=== PATIENT | female | born 1975 | race Caucasian/White ===

== ENCOUNTER → 2016-09-18 | Outpatient (REF) | payer OTHER ==
[~2016-09-18] MED LIST: /HCTZ25TA OR; /PANT40TA PO; ADDE20TA PO; ALBU17IN INH; ATEN50TA2 PO; CARA1TAB2 PO; DIPH50CA OR; FERR325T PO; FERR325T3 PO; IBUP600T26 OR; IBUP80TA PO; KETO10TAB PO; LISI2.5T PO; LISI40TAB OR; MULT1TAB18 PO; PERCOCET PO; PROA1AER INH; PROT1TAB2 PO; TEMA30CA PO; TRAZ50TA2 PO; VALI2TAB PO; VICO5TAB16 PO; VITA500047 PO; VITA500C24 PO; WELLTAB38 PO; ZOFR4SOL PO; ZOLO20CO PO; ZOLO50TA PO; tramadol OR; vitamin B12 IM
[2016-09-23 00:06] LABS: BENZODIAZEPINES, URINE SCREEN See Final Results ng/mL (Cutoff=200); METHADONE, URINE SCREEN Negative ng/mL (Cutoff=300); pH, URINE 6.6 (4.5-8.9)
== END ==
LOC: M SFHCPLAZ 13:28
PROVIDERS: ATTEND Nurse Practitioner Adult Health
DX: F90.9 Attention-deficit hyperactivity disorder, unspecified type (principal)

== ENCOUNTER → 2016-11-06 | Outpatient (REF) | payer OTHER | LOC: M SFHCPLAZ 13:38 | PROVIDERS: ATTEND Nurse Practitioner Adult Health | DX: Z98.84 Bariatric surgery status (principal) ==

== ENCOUNTER 2017-01-14 13:48 | Emergency (ER) | payer OTHER ==
[~2017-01-14] VITALS: Ht 162.6 cm; Wt 96.6 kg
[2017-01-14 13:48] VITALS: BP 162/93
[2017-01-14] MEDS ORDERED: BUPR10TASR PO (13:57)
[2017-01-14] MEDS ORDERED: TOPA100T8 PO (13:57)
[2017-01-14] MEDS ORDERED: SUCR1TA PO (13:57)
[2017-01-14] MEDS ORDERED: VYVA70CA3 PO (13:57)
[2017-01-14] MEDS ORDERED: WELLTAB38 PO (13:57)
[2017-01-14] MEDS ORDERED: ADDE30CA PO (13:57)
[2017-01-14] MEDS ORDERED: LISI-538 PO (13:57)
[2017-01-14] MEDS ORDERED: diphenhydrAMINE INJ 50MG/ML VIAL (J1200) IV STA (14:14)
[2017-01-14] MEDS ORDERED: NS 1,000 ML IV ONE (14:15)
[2017-01-14] MEDS ORDERED: methylPREDNISolone INJ 125 MG/2 ML VIAL (J2930) IV ONE (14:15)
[2017-01-14] MEDS ORDERED: METOCLOPRAMIDE INJ 10MG/2ML VIAL (J2765) IV ONE (14:15)
[2017-01-14] MEDS ORDERED: ACETAMINOPHEN 325 MG TAB PO ONE (14:15)
[2017-01-14 14:54] LABS: BASO % 0.2 % (0.0-1.0); EOS # 0.1 K/mm3 (0.0-0.50); EOS % 1.1 % (0.0-3.0); LARGE UNSTAINED CELL # 0.2 K/mm3 (0.0-0.4); LARGE UNSTAINED CELL % 2.3 % (0.0-4.0); LYMPH % 27.7 % (24.0-44.0); MEAN CORPUSCULAR HEMOGLOBIN 25.3 pg (27.0-33.0); MEAN CORPUSCULAR HGB CONC 31.5 g/dl (32.0-36.5); MEAN CORPUSCULAR VOLUME 80.2 fl (80.0-96.0); MONO # 0.5 K/mm3 (0.0-0.8); MONO % 7.1 % (0.0-5.0); NEUTROPHILS % 61.5 % (36.0-66.0); PLATELET COUNT, AUTOMATED 309 k/mm3 (150-450); RED CELL DISTRIBUTION WIDTH 16.8 % (11.5-14.5); WHITE BLOOD COUNT 6.5 K/mm3 (4.0-10.0)
[2017-01-14 15:09] LABS: ANION GAP 6 MEQ/L (8-16); BLOOD UREA NITROGEN 11 MG/DL (7-18); CALCIUM LEVEL 8.1 MG/DL (8.5-10.1); CARBON DIOXIDE LEVEL 25 MEQ/L (21-32); CHLORIDE LEVEL 110 MEQ/L (98-107); CREATININE FOR GFR 0.79 MG/DL (0.55-1.02); GLOMERULAR FILTRATION RATE > 60.0 (>58); GLUCOSE, FASTING 89 MG/DL (70-105); POTASSIUM SERUM 4.3 MEQ/L (3.5-5.1); SODIUM LEVEL 141 MEQ/L (136-145)
--- NOTE | 2017-01-14 15:27 | REP ---
CT STUDY OF THE BRAIN WITHOUT CONTRAST: HISTORY: Headache. FINDINGS: Digital lateral industrial waste treatment technician radiograph is unremarkable. Bone window settings demonstrate an intact bony calvarium. There is minimal mucus in the right side of the sphenoid sinus. The visualized paranasal sinuses are otherwise clear. No intraorbital abnormality is seen. On soft tissue window settings, the lateral, third, fourth ventricles are normal in size and position. Echavarria-white differentiation pattern is normal above and below the tentorium. There is no evidence of intracranial hemorrhage. No extra-axial fluid collection is seen. No mass, infarct or midline shift is seen. IMPRESSION: Negative noncontrast head CT. Signed by Tom Espitia MD 01/14/2017 03:44 P
[2017-01-14 15:28] LABS: ERYTHROCYTE SEDIMENTATION RATE 17 mm/hr (0-20)
[2017-01-14] MEDS ORDERED: KETOROLAC 30 MG/ML VIAL (J1885) IV ONE (15:45)
[2017-01-14] MEDS ORDERED: ROBA500T PO (16:13)
[2017-01-16 00:12] LABS: Lyme Disease IgG/IgM Antibodie <0.91 ISR (0.00-0.90); Lyme Disease IgM Ab Quantitati <0.80 index (0.00-0.79)
== END 2017-01-14 16:25 | disposition home or self-care (01) ==
LOC: M ED 14:57
DX: G43.909 Migraine, unspecified, not intractable, without status migrainosus (principal); I10 Essential (primary) hypertension; K21.9 Gastro-esophageal reflux disease without esophagitis; D68.59 Other primary thrombophilia; A69.20 Lyme disease, unspecified; F31.9 Bipolar disorder, unspecified; R42 Dizziness and giddiness; M51.9 Unspecified thoracic, thoracolumbar and lumbosacral intervertebral disc disorder; F90.9 Attention-deficit hyperactivity disorder, unspecified type; Z87.891 Personal history of nicotine dependence
CPT/HCPCS: 70450; 80048; 85025; 85652; 86140; 86617; 96374; 96375; 99282; J1200; J1885; J2765; J2930

== ENCOUNTER → 2017-03-07 | Outpatient (REF) | payer OTHER ==
[~2017-03-07] MED LIST changes: +ADDE30CA3 PO; +BUPR10TASR PO; +FERR1TAB8 PO; -FERR325T PO; +LISI-538 PO; +METF500T13 PO; +PAME10CA PO; +PHEN15CA PO; -PROA1AER INH; +PROAAER10 INH; +ROBA500T PO; +SUCR1TA PO; +TOPA100T12 PO; +VYVA70CA3 PO
== END ==
LOC: M LAB REF 12:49
PROVIDERS: ATTEND Physician Assistant
DX: N39.0 Urinary tract infection, site not specified (principal)

== ENCOUNTER → 2017-03-08 | Outpatient (REF) | payer OTHER | LOC: M SFHCWAGY 15:52 | PROVIDERS: ATTEND Nurse Practitioner Family | DX: N89.8 Other specified noninflammatory disorders of vagina (principal) ==

== ENCOUNTER → 2017-04-30 | Outpatient (CLI) | payer OTHER ==
--- NOTE | 2017-04-30 12:49 | REP ---
Chest x-ray: Two views. History: Shortness of breath. Question pneumonia. . Comparison study: July 12, 2016 . Findings: The lungs are well inflated and free of infiltrate. The pleural angles are sharp. The heart size is normal. Pulmonary vasculature is not increased. No significant bony abnormality is seen. Impression: Negative chest x-ray. Signed by Tom Espitia MD 04/30/2017 12:40 P
== END ==
LOC: M RAD 12:12
PROVIDERS: ATTEND Physician Assistant Medical
DX: R06.02 Shortness of breath (principal)

== ENCOUNTER 2017-06-29 11:42 | Emergency (ER) | payer OTHER ==
[~2017-06-29] VITALS: Ht 162.6 cm; Wt 97.3 kg
[~2017-06-29 11:42] MED LIST changes: -METF500T13 PO; -PAME10CA PO; -PHEN15CA PO
[2017-06-29] MEDS ORDERED: METF500T13 PO (11:56)
[2017-06-29] MEDS ORDERED: PAME10CA PO (11:56)
[2017-06-29] MEDS ORDERED: PHEN15CA PO (11:56)
[2017-06-29] MEDS ORDERED: NS 500 ML IV ONE (12:30)
[2017-06-29 12:42] LABS: BASO % 0.3 % (0.0-1.0); EOS # 0.1 10^3/uL (0.0-0.50); EOS % 1.3 % (0.0-3.0); IMMATURE GRANULOCYTE % 0.2 % (0-0); LYMPH # 1.9 10^3/uL (1.5-4.5); LYMPH % 31.8 % (24.0-44.0); MEAN CORPUSCULAR HEMOGLOBIN 26.3 pg (27.0-33.0); MEAN CORPUSCULAR HGB CONC 32.6 g/dl (32.0-36.5); MEAN CORPUSCULAR VOLUME 80.9 fl (80.0-96.0); MONO # 0.7 10^3/uL (0.0-0.8); MONO % 11.7 % (0.0-5.0); NEUTROPHILS # 3.3 10^3/uL (1.8-7.7); NEUTROPHILS % 54.7 % (36.0-66.0); PLATELET COUNT, AUTOMATED 277 10^3/uL (150-450); RED CELL DISTRIBUTION WIDTH 15.6 % (11.5-14.5)
[2017-06-29 13:06] LABS: ALBUMIN 3.4 GM/DL (3.2-5.2); ALKALINE PHOSPHATASE 100 U/L (45-117); ALT/SGPT 18 U/L (12-78); ANION GAP 6 MEQ/L (8-16); AST/SGOT 10 U/L (15-37); BILIRUBIN,DIRECT 0.1 MG/DL (0.0-0.2); BILIRUBIN,TOTAL 0.3 MG/DL (0.2-1.0); BLOOD UREA NITROGEN 12 MG/DL (7-18); CALCIUM LEVEL 8.3 MG/DL (8.5-10.1); CARBON DIOXIDE LEVEL 22 MEQ/L (21-32); CHLORIDE LEVEL 110 MEQ/L (98-107); CREATININE FOR GFR 0.88 MG/DL (0.55-1.02); GLOMERULAR FILTRATION RATE > 60.0 (>58); GLUCOSE, FASTING 79 MG/DL (70-105); POTASSIUM SERUM 4.4 MEQ/L (3.5-5.1); SODIUM LEVEL 138 MEQ/L (136-145); TOTAL PROTEIN 6.8 GM/DL (6.4-8.2)
[2017-06-29] MEDS ORDERED: ISOVUE-370 76% 100ML VIAL (Q9967) As Ordered ONE (13:26)
--- NOTE | 2017-06-29 13:38 | REP ---
PA and lateral chest: Comparison is 2016. The lung escalera are clear. The cardiac size is normal The jose, mediastinum, and bony thorax are unremarkable. Impression: Negative PA and lateral chest. There is no interval change. Signed by Freddy Traore MD 06/29/2017 01:29 P
--- NOTE | 2017-06-29 14:32 | REP ---
CT of the chest with IV contrast, CT pulmonary angiography: There are no emboli in the pulmonary trunk or central pulmonary arteries. There are no emboli in the pulmonary lobe or segment branches. There are no infiltrates or effusions. There are no masses or nodules. There is no mediastinal or hilar adenopathy. No axillary adenopathy. The thoracic aorta is unremarkable. Cardiac size is normal. The visualized upper abdominal contents are unremarkable. There are surgical clips suggestive of bariatric surgery. Impression: There are no pulmonary emboli. Otherwise, negative CT study of the chest. There are surgical clips in the upper abdomen suggestive of bariatric surgery. Signed by Freddy Traore MD 06/29/2017 02:24 P
[2017-06-29 14:40] VITALS: BP 129/88
--- NOTE | 2017-06-30 08:02 | ECGEPIP ---
Stationary ECG Study [facility] - ED Test Date: 2017-06-29 Pat Name: DELON CARR Department: Room: - Gender: F Medical Office Rep: PB : 1975 Requested By: Jesus Kirkpatrick Order Number: [id number] Reading MD: Kathy Dubois Measurements Intervals [place] Rate: 87 P: 68 CT: 164 QRS: 0 QRSD: 93 T: 34 QT: 362 QTc: 436 Interpretive Statements SINUS RHYTHM NSTTW ABNORMALITY DECREASED RATE 07/06/16 Electronically Signed On 06-30-2017 8:02:07 EDT by Kathy Dubois
== END 2017-06-29 14:55 | disposition home or self-care (01) ==
LOC: M ED 11:42
DX: R07.9 Chest pain, unspecified (principal); R06.02 Shortness of breath; R94.31 Abnormal electrocardiogram [ECG] [EKG]; F90.9 Attention-deficit hyperactivity disorder, unspecified type; F41.9 Anxiety disorder, unspecified; F32.9 Major depressive disorder, single episode, unspecified; D68.59 Other primary thrombophilia; K85.90 Acute pancreatitis without necrosis or infection, unspecified; M51.86 Other intervertebral disc disorders, lumbar region; R42 Dizziness and giddiness; M25.50 Pain in unspecified joint; R53.83 Other fatigue; E06.9 Thyroiditis, unspecified; A69.20 Lyme disease, unspecified; Z87.01 Personal history of pneumonia (recurrent); Z95.5 Presence of coronary angioplasty implant and graft; Z98.84 Bariatric surgery status; Z82.49 Family history of ischemic heart disease and other diseases of the circulatory system; Z79.899 Other long term (current) drug therapy; Z88.6 Allergy status to analgesic agent; Z88.5 Allergy status to narcotic agent; Z88.8 Allergy status to other drugs, medicaments and biological substances; Z88.1 Allergy status to other antibiotic agents
CPT/HCPCS: 71020; 71275; 80048; 80076; 82550; 82553; 83605; 85025; 93000; 93041; 94760; 96360; 99285; Q9967

== ENCOUNTER 2018-03-01 11:59 | Emergency (ER) | payer OTHER ==
[2018-03-01 13:20] LABS: CK-MB VALUE MASS < 1.0 NG/ML (<3.6); CPK CREATINE PHOSPHOKINASE 78 U/L (26-192); MB/CK RELATIVE INDEX 1.28 (< OR =4); TROPONIN I < 0.02 NG/ML (< 0.10)
== END 2018-03-01 14:11 | disposition home or self-care (01) ==
LOC: M ED 11:59
DX: R07.9 Chest pain, unspecified (principal); F41.1 Generalized anxiety disorder; K04.7 Periapical abscess without sinus; I10 Essential (primary) hypertension; Z98.84 Bariatric surgery status; D68.59 Other primary thrombophilia; F90.9 Attention-deficit hyperactivity disorder, unspecified type; Z79.899 Other long term (current) drug therapy; Z88.6 Allergy status to analgesic agent; Z88.5 Allergy status to narcotic agent; Z88.8 Allergy status to other drugs, medicaments and biological substances; Z88.1 Allergy status to other antibiotic agents
CPT/HCPCS: 93005

== ENCOUNTER 2018-06-30 15:32 | Emergency (ER) | payer OTHER ==
[2018-06-30] MEDS: PERCOCET 5MG/325MG TAB PO (16:27)
[2018-06-30] MEDS: CYCLOBENZAPRINE 10 MG TAB PO (16:27)
== END 2018-06-30 17:12 | disposition home or self-care (01) ==
LOC: M ED 15:32
DX: S86.112A Strain of other muscle(s) and tendon(s) of posterior muscle group at lower leg level, left leg, initial encounter (principal); X50.9XXA Other and unspecified overexertion or strenuous movements or postures, initial encounter; Y92.098 Other place in other non-institutional residence as the place of occurrence of the external cause; I11.0 Hypertensive heart disease with heart failure; I50.9 Heart failure, unspecified; J45.909 Unspecified asthma, uncomplicated; Z88.1 Allergy status to other antibiotic agents; Z88.5 Allergy status to narcotic agent; Z88.8 Allergy status to other drugs, medicaments and biological substances; Z79.899 Other long term (current) drug therapy
CPT/HCPCS: 99284

== ENCOUNTER 2018-12-12 15:04 | Emergency (ER) | payer OTHER ==
[~2018-12-12] VITALS: Ht 162.6 cm; Wt 100.0 kg
[2018-12-12 15:04] VITALS: BP 136/87
[~2018-12-12 15:04] MED LIST changes: -/HCTZ25TA OR; -/PANT40TA PO; +CLIN150C14 PO; +CYCL10TA PO; +HYDR-3644 OR; +LISI40TA52 OR; -LISI40TAB OR; +METF500T13 PO; +PAME10CA PO; +PERC5TAB12 PO; +PHEN15CA PO
[2018-12-12] MEDS ORDERED: PENI500T PO (15:46)
[2018-12-12] MEDS ORDERED: HYDR-3715 PO (15:46)
== END 2018-12-12 16:06 | disposition home or self-care (01) ==
LOC: M ED 15:04
DX: K04.7 Periapical abscess without sinus (principal); I10 Essential (primary) hypertension; Z88.8 Allergy status to other drugs, medicaments and biological substances; Z88.5 Allergy status to narcotic agent; Z88.1 Allergy status to other antibiotic agents

== ENCOUNTER 2018-12-15 11:52 | Emergency (ER) | payer OTHER ==
[~2018-12-15 11:52] MED LIST changes: +HYDR-3715 PO; +PENI500T PO
[2018-12-15] MEDS ORDERED: ACET1TAB55 PO (11:58)
[2018-12-15 12:46] LABS: INFLUENZA A AMPLIFICATION NEGATIVE (NEGATIVE); INFLUENZA B AMPLIFICATION NEGATIVE (NEGATIVE)
[2018-12-15] MEDS ORDERED: IPRATROPIUM 0.5MG/ALBUTEROL 2.5MG INH SOL UD 3ML (DUONEB)(J7620) NEB PRN (13:15)
--- NOTE | 2018-12-15 14:32 | REP ---
Chest x-ray: Two views. History: Dyspnea and cough . Comparison study: June 29, 2017 . Findings: The lungs are well inflated and free of infiltrate. The pleural angles are sharp. The heart size is normal. Pulmonary vasculature is not increased. No significant bony abnormality is seen. Impression: Negative chest x-ray. Electronically Signed by Tom Espitia MD 12/15/2018 02:23 P
[2018-12-15] MEDS ORDERED: PRED20TA PO (14:48)
[2018-12-15] MEDS ORDERED: MAGICMW SSP (14:49)
[2018-12-15 15:00] VITALS: BP 122/74
== END 2018-12-15 15:04 | disposition home or self-care (01) ==
LOC: M ED 11:52
DX: J06.9 Acute upper respiratory infection, unspecified (principal); I50.9 Heart failure, unspecified; J45.909 Unspecified asthma, uncomplicated; Z98.84 Bariatric surgery status; Z79.2 Long term (current) use of antibiotics; Z79.891 Long term (current) use of opiate analgesic; Z79.51 Long term (current) use of inhaled steroids; Z79.899 Other long term (current) drug therapy; Z88.5 Allergy status to narcotic agent; Z88.6 Allergy status to analgesic agent; Z88.8 Allergy status to other drugs, medicaments and biological substances

== ENCOUNTER 2019-01-14 11:14 | Emergency (ER) | payer OTHER ==
[~2019-01-14] VITALS: Ht 165.1 cm; Wt 101.5 kg
[~2019-01-14 11:14] MED LIST changes: +ACET1TAB55 PO; +MAGICMW SSP; +PRED20TA PO
[2019-01-14] MEDS ORDERED: CLIN150C14 PO (11:22)
[2019-01-14] MEDS ORDERED: UNASYN 3 GM VIAL IM ONE (12:15)
[2019-01-14] MEDS ORDERED: AMPI500C9 PO (12:20)
[2019-01-14] MEDS ORDERED: TRAM50TA2 PO (12:21)
[2019-01-14] MEDS ORDERED: LIDOCAINE 1% MDV 20ML VIAL IM ONE (12:45)
[2019-01-14 13:22] VITALS: BP 123/86
== END 2019-01-14 13:23 | disposition home or self-care (01) ==
LOC: M ED 11:14
DX: K02.9 Dental caries, unspecified (principal); K04.7 Periapical abscess without sinus; I10 Essential (primary) hypertension; A69.20 Lyme disease, unspecified; Z98.84 Bariatric surgery status; Z79.899 Other long term (current) drug therapy; Z88.5 Allergy status to narcotic agent; Z88.8 Allergy status to other drugs, medicaments and biological substances

== ENCOUNTER 2019-01-15 09:14 | Emergency (ER) | payer OTHER ==
[~2019-01-15] VITALS: Ht 165.1 cm; Wt 102.0 kg
[2019-01-15 09:14] VITALS: BP 125/78
[~2019-01-15 09:14] MED LIST changes: +AMPI500C9 PO; +TRAM50TA2 PO
== END 2019-01-15 09:54 | disposition home or self-care (01) ==
LOC: M ED 09:14
DX: K04.7 Periapical abscess without sinus (principal); I11.0 Hypertensive heart disease with heart failure; I50.9 Heart failure, unspecified; J45.909 Unspecified asthma, uncomplicated; K21.9 Gastro-esophageal reflux disease without esophagitis; D68.2 Hereditary deficiency of other clotting factors; A69.20 Lyme disease, unspecified; F90.9 Attention-deficit hyperactivity disorder, unspecified type; F31.9 Bipolar disorder, unspecified; F33.9 Major depressive disorder, recurrent, unspecified; F41.9 Anxiety disorder, unspecified; Z79.899 Other long term (current) drug therapy; Z88.1 Allergy status to other antibiotic agents; Z88.5 Allergy status to narcotic agent; Z88.8 Allergy status to other drugs, medicaments and biological substances

== ENCOUNTER 2019-01-27 09:17 | Emergency (ER) | payer OTHER ==
[~2019-01-27] VITALS: Ht 162.6 cm; Wt 100.8 kg
[2019-01-27] MEDS ORDERED: AMPHET/DEXTR (09:39)
[2019-01-27] MEDS: NITROGLYCERIN 0.4 MG SUBL TABLET SL PRN ×2 (09:45→10:18)
[2019-01-27 09:53] LABS: BASO % 0.4 % (0.0-1.0); EOS # 0.1 10^3/uL (0.0-0.50); EOS % 1.6 % (0.0-3.0); HEMATOCRIT 36.9 % (36.0-47.0); HEMOGLOBIN 11.9 g/dl (12.0-15.5); LYMPH # 1.5 10^3/uL (1.5-4.5); LYMPH % 27.3 % (24.0-44.0); MEAN CORPUSCULAR HEMOGLOBIN 27.4 pg (27.0-33.0); MEAN CORPUSCULAR HGB CONC 32.2 g/dl (32.0-36.5); MEAN CORPUSCULAR VOLUME 84.8 fl (80.0-96.0); MONO # 0.5 10^3/uL (0.0-0.8); MONO % 9.4 % (0.0-5.0); NEUTROPHILS # 3.4 10^3/uL (1.8-7.7); NEUTROPHILS % 61.1 % (36.0-66.0); PLATELET COUNT, AUTOMATED 309 10^3/uL (150-450); RED BLOOD COUNT 4.35 10^6/uL (4.00-5.40); WHITE BLOOD COUNT 5.5 10^3/uL (4.0-10.0)
[2019-01-27 10:03] LABS: INR 0.94; PROTHROMBIN TIME 12.7 SECONDS (12.1-14.4)
[2019-01-27 10:04] LABS: PARTIAL THROMBOPLASTIN TIME 29.9 SECONDS (25.4-37.6)
[2019-01-27 10:18] VITALS: BP 145/89
[2019-01-27 10:23] LABS: ALBUMIN 3.3 GM/DL (3.2-5.2); ALT/SGPT 17 U/L (12-78); BILIRUBIN,DIRECT < 0.1 MG/DL (0.0-0.2); BILIRUBIN,TOTAL 0.3 MG/DL (0.2-1.0); BLOOD UREA NITROGEN 10 MG/DL (7-18); CALCIUM LEVEL 8.6 MG/DL (8.5-10.1); CARBON DIOXIDE LEVEL 24 MEQ/L (21-32); CHLORIDE LEVEL 109 MEQ/L (98-107); CPK CREATINE PHOSPHOKINASE 181 U/L (26-192); CREATININE FOR GFR 0.78 MG/DL (0.55-1.30); GLOMERULAR FILTRATION RATE > 60.0 (>58); GLUCOSE, FASTING 74 MG/DL (70-100); LIPASE 194 U/L (73-393); POTASSIUM SERUM 3.6 MEQ/L (3.5-5.1); SODIUM LEVEL 141 MEQ/L (136-145); TROPONIN I < 0.02 NG/ML (< 0.10)
--- NOTE | 2019-01-27 10:32 | REP ---
Bilateral lower extremity Duplex Doppler venous ultrasound: Real time compression and duplex Doppler interrogation of the bilateral lower extremity deep venous system is performed. Bilaterally, the common femoral, superficial femoral and popliteal veins are fully compressible with transducer pressure and demonstrate normal spontaneous and phasic flow, without evidence of deep venous thrombosis. Impression: No evidence of deep venous thrombosis of the bilateral lower extremity femoral popliteal venous system. Electronically Signed by Freddy Echavarria MD 01/27/2019 10:24 A
[2019-01-27] MEDS ORDERED: ISOVUE-370 76% 100ML VIAL (Q9967) As Ordered ONE (10:39)
--- NOTE | 2019-01-27 11:54 | REP ---
CT ANGIOGRAM CHEST: TECHNIQUE: Axial contrast enhanced images from the thoracic inlet to the upper abdomen using 100 mL Isovue 370 intravenous contrast material with multiplanar reformations. There is no CT evidence of pulmonary embolism. There is no thoracic aortic aneurysm or dissection. The heart is normal in size. There is no evidence of mediastinal, hilar, or chest wall lymphadenopathy. There is no pleural or pericardial effusion. Insignificant 3 mm nodular opacity in the right lower lobe is stable since the prior CT of 06/29/2017. No infiltrate is seen in either lung. IMPRESSION: No CT evidence of pulmonary embolism or aortic dissection. No acute pulmonary disease. Electronically Signed by Freddy Echavarria MD 01/28/2019 09:14 A
[2019-01-27 16:10] LABS: CPK CREATINE PHOSPHOKINASE 153 U/L (26-192); MB/CK RELATIVE INDEX 1.83 (< OR =4); TROPONIN I < 0.02 NG/ML (< 0.10)
[2019-01-27 17:14] LABS: NT-PRO BNP 124 PG/ML (<125)
[2019-01-27] MEDS ORDERED: PROT1TAB2 PO (17:20)
[2019-01-27 17:27] VITALS: BP 145/94
--- NOTE | 2019-01-27 21:09 | REP ---
Chest two views HISTORY: Chest pain Comparison: 12/15/2018 The lungs are clear. The heart is normal in size. The pulmonary vasculature is normal in appearance. Degenerative change is present in the thoracic spine. IMPRESSION: No acute disease. Electronically Signed by Teddy Aguillon MD 01/27/2019 10:10 A
--- NOTE | 2019-01-27 21:10 | REP ---
Thoracic spine three views History: Mid-back pain There is no acute fracture or subluxation. There is loss of height of several mid and lower thoracic intervertebral discs. Anterior osteophytes are present in the lower thoracic spine. There is minimal scoliosis convex to the right. Impression: Degenerative change as described above. Electronically Signed by Teddy Aguillon MD 01/27/2019 10:09 A
--- NOTE | 2019-01-28 06:01 | ECGEPIP ---
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 Order Number: [id number] Reading MD: Jesus Torrez Measurements Intervals [place] Rate: 90 P: 70 NE: 157 QRS: -15 QRSD: 89 T: 18 QT: 364 QTc: 447 Interpretive Statements SINUS RHYTHM NSTTW ABNORMALITIES SIMILAR TO 03/01/18 Electronically Signed on 01-28-2019 6:00:24 EDT by Jesus Torrez
--- NOTE | 2019-01-28 06:12 | ECGEPIP ---
[facility] - ED Test Date: 2019-01-27 Pat Name: DELON CARR Department: Room: - Gender: F Wellness Assistant: CT : 1975 Requested By: BRENDAN Palacios Order Number: [id number] Reading MD: Jesus Torrez Measurements Intervals [place] Rate: 95 P: 63 MO: 159 QRS: -16 QRSD: 90 T: 26 QT: 345 QTc: 435 Interpretive Statements SINUS RHYTHM NSTTW ABNORMALITIES SIMILAR TO PRIOR ON SAME DATE Electronically Signed on 01-28-2019 6:12:09 EDT by Jesus Torrez
== END 2019-01-27 17:33 | disposition home or self-care (01) ==
LOC: M ED 09:17
DX: R07.9 Chest pain, unspecified (principal); R94.31 Abnormal electrocardiogram [ECG] [EKG]; M25.78 Osteophyte, vertebrae; M41.9 Scoliosis, unspecified; R06.02 Shortness of breath; R22.43 Localized swelling, mass and lump, lower limb, bilateral; Z98.84 Bariatric surgery status; Z87.891 Personal history of nicotine dependence; Z86.14 Personal history of Methicillin resistant Staphylococcus aureus infection; Z86.19 Personal history of other infectious and parasitic diseases; Z88.5 Allergy status to narcotic agent; Z88.6 Allergy status to analgesic agent; Z88.8 Allergy status to other drugs, medicaments and biological substances; Z79.899 Other long term (current) drug therapy; Z79.51 Long term (current) use of inhaled steroids; Z79.891 Long term (current) use of opiate analgesic
CPT/HCPCS: 71046; 71275; 72072; 80048; 80076; 82550; 82553; 83690; 83880; 84439; 84443; 85025; 85610; 85730; 93005; 93041; 93970; 94760; 99285; Q9967

== ENCOUNTER → 2019-07-08 | Outpatient (CLI) | payer OTHER ==
[~2019-07-08] MED LIST changes: +AMPHET/DEXTR
--- NOTE | 2019-07-08 10:18 | REP ---
Clinical: Abdominal pain and bloating. Technique: Two supine views of the abdomen and pelvis. Findings: Bowel gas pattern is nonspecific. Postsurgical changes are appreciated. No obvious organomegaly. Phleboliths noted in the pelvis. Skeletal structures are intact. Impression: Nonspecific bowel gas pattern. Electronically Signed by Brian Lanier MD 07/08/2019 10:09 A
--- NOTE | 2019-07-08 10:38 | REP ---
Clinical: Abdominal pain and bloating Technique: Real time cornejo scale ultrasound examination using curved array transducer. Findings: Liver is mildly echogenic and coarsened without focal hepatic lesion identified. Pancreas is incompletely evaluated due to interposed bowel gas but visualized portions appear normal. The gallbladder is unremarkable and without gallstones, wall thickening, or pericholecystic fluid. No biliary ductal dilatation is appreciated and the common bile duct measures 3.0 mm diameter. Right kidney is normal in reniform shape without hydronephrosis and measures 10.5 x 5.55 4.6 cm. No ascites in the visualized right upper quadrant. Impression: 1. Mild hepatic steatosis. 2. Otherwise essentially normal right upper quadrant abdominal ultrasound. Electronically Signed by Brian Lanier MD 07/08/2019 10:29 A
== END ==
LOC: M RAD 09:48
PROVIDERS: ATTEND Student in an Organized Health Care Education/Training Program
DX: R14.0 Abdominal distension (gaseous) (principal); R14.3 Flatulence; K76.0 Fatty (change of) liver, not elsewhere classified

== ENCOUNTER → 2019-09-21 | Outpatient (CLI) | payer OTHER ==
[~2019-09-21] MED LIST changes: +E-Z-GAS II EFFERVESCENT PACKET (SODIUM BICARB./CITRIC ACID/SIMETHICONE) As Ordered ONE; +E-Z-HD 98% w/w 340GM SUSP BTL As Ordered ONE; +E-Z-PAQUE 96% w/w SUSP 176GM BTL As Ordered ONE
--- NOTE | 2019-09-21 19:05 | REP ---
UPPER GI SINGLE CONTRAST The procedure was performed under the direct supervision of Dr. Espitia. The images were reviewed with Dr. Espitia. The channeler runner film shows no organomegaly or pathological masses. The intestinal gas pattern is nonspecific. There are surgical clips noted in the right abdomen. Liquid barium was administered in the erect and prone oblique positions. The oral and pharyngeal stages of deglutition are unremarkable. Esophageal transport is prompt and efficient and there is no esophagitis stricture mucosal ring. There is a sliding type hiatal hernia. There is gastroesophageal reflux demonstrated to above the level of the rajni. There are postsurgical changes of the stomach consistent with the patient's history of Fredy-en-Y gastric bypass. There is free flow of contrast to the anastomosis. There is no evidence of gastritis neoplasm or ulcer disease. The visualized portion of the proximal small bowel appears normal in course and caliber. Impression: 1. There is a sliding type hiatal hernia with gastroesophageal reflux demonstrated to above the level of the rajni. 2. Postsurgical changes of the stomach consistent with the patient's history of Fredy-en-Y gastric bypass. 1 minute of fluoroscopy time was utilized for this procedure. Electronically Signed by SUAD Ny 09/21/2019 04:10 P Electronically Signed by oTm Espitia MD 09/21/2019 06:55 P
== END ==
LOC: M RAD 09:32
PROVIDERS: ATTEND Student in an Organized Health Care Education/Training Program
DX: R13.10 Dysphagia, unspecified (principal)

== ENCOUNTER → 2019-09-21 | Outpatient (CLI) | payer OTHER ==
[~2019-09-21] MED LIST changes: -E-Z-GAS II EFFERVESCENT PACKET (SODIUM BICARB./CITRIC ACID/SIMETHICONE) As Ordered ONE; -E-Z-HD 98% w/w 340GM SUSP BTL As Ordered ONE; -E-Z-PAQUE 96% w/w SUSP 176GM BTL As Ordered ONE
[2019-09-21 11:04] LABS: ALBUMIN 3.2 GM/DL (3.2-5.2); ALT/SGPT 17 U/L (12-78); BILIRUBIN,TOTAL 0.3 MG/DL (0.2-1.0); BLOOD UREA NITROGEN 16 MG/DL (7-18); CALCIUM LEVEL 8.6 MG/DL (8.5-10.1); CARBON DIOXIDE LEVEL 23 MEQ/L (21-32); CHLORIDE LEVEL 112 MEQ/L (98-107); CHOLESTEROL LEVEL 164 MG/DL (<200); CHOLESTEROL RISK RATIO 2.645 (<5); CREATININE FOR GFR 0.86 MG/DL (0.55-1.30); FREE T4 0.81 NG/DL (0.76-1.46); GLOMERULAR FILTRATION RATE > 60.0 (>58); GLUCOSE, FASTING 73 MG/DL (70-100); HDL CHOLESTEROL 62 MG/DL (>40); LDL CHOLESTEROL 88 MG/DL (<100); NON-HDL-C 102 MG/DL; POTASSIUM SERUM 4.4 MEQ/L (3.5-5.1); SODIUM LEVEL 141 MEQ/L (136-145); TOTAL PROTEIN 6.7 GM/DL (6.4-8.2); TRIGLYCERIDES LEVEL 71 MG/DL (<150)
== END ==
LOC: M LAB 09:35
PROVIDERS: ATTEND Family Medicine Addiction Medicine
DX: R63.5 Abnormal weight gain (principal); I10 Essential (primary) hypertension

== ENCOUNTER 2019-12-31 10:31 | Emergency (ER) | payer OTHER ==
[~2019-12-31] VITALS: Ht 162.6 cm; Wt 104.8 kg
[~2019-12-31 10:31] MED LIST changes: +CYCL-707 PO; -CYCL10TA PO
[2019-12-31] MEDS ORDERED: dexameTHASONE 20MG/5ML VIAL (J1100 PER 1MG) IV ONE (11:00)
[2019-12-31] MEDS ORDERED: FAMOTIDINE INJ 20MG/2ML VIAL (S0028 PER 1) IVP ONE (11:00)
[2019-12-31] MEDS ORDERED: diphenhydrAMINE 50MG/ML VIAL (J1200) IV ONE (11:00)
[2019-12-31] MEDS ORDERED: BUPR300T92 PO (11:08)
[2019-12-31] MEDS ORDERED: DIAZ2TAB PO (11:08)
[2019-12-31] MEDS ORDERED: ADDE20CA3 PO (11:08)
[2019-12-31] MEDS ORDERED: CARV12.5 PO (12:33)
[2019-12-31 12:58] VITALS: BP 141/90
== END 2019-12-31 13:01 | disposition home or self-care (01) ==
LOC: M ED 10:31
DX: T46.4X5A Adverse effect of angiotensin-converting-enzyme inhibitors, initial encounter (principal); I10 Essential (primary) hypertension; J45.909 Unspecified asthma, uncomplicated; K21.9 Gastro-esophageal reflux disease without esophagitis; D68.51 Activated protein C resistance; F41.9 Anxiety disorder, unspecified; F90.9 Attention-deficit hyperactivity disorder, unspecified type; Z98.84 Bariatric surgery status; Z88.5 Allergy status to narcotic agent; Z88.8 Allergy status to other drugs, medicaments and biological substances; Z79.51 Long term (current) use of inhaled steroids; Z79.899 Other long term (current) drug therapy
CPT/HCPCS: 96374; 96375; 99284; J1100

== ENCOUNTER 2020-01-02 17:12 | Emergency (ER) | payer OTHER ==
[~2020-01-02] VITALS: Ht 162.6 cm; Wt 104.0 kg
[~2020-01-02 17:12] MED LIST changes: +ADDE20CA3 PO; +BUPR300T92 PO; +CARV12.5 PO; +DIAZ2TAB PO
[2020-01-02] MEDS ORDERED: methylPREDNISolone INJ 125 MG/2 ML VIAL (J2930) IV ONE (17:45)
[2020-01-02] MEDS ORDERED: NS 1,000 ML IV ONE (17:45)
[2020-01-02] MEDS ORDERED: COMBIVENT RESPIMAT 100-20MCG INHALER 4GM INH ONE (17:45)
[2020-01-02 18:17] LABS: BASO % 0.4 % (0.0-1.0); EOS # 0.1 10^3/uL (0.0-0.5); EOS % 1.8 % (0.0-3.0); HEMATOCRIT 37.4 % (36.0-47.0); HEMOGLOBIN 11.9 g/dl (12.0-15.5); LYMPH # 2.3 10^3/uL (1.5-5.0); LYMPH % 33.8 % (24.0-44.0); MEAN CORPUSCULAR HEMOGLOBIN 26.6 pg (27.0-33.0); MEAN CORPUSCULAR HGB CONC 31.8 g/dl (32.0-36.5); MEAN CORPUSCULAR VOLUME 83.7 fl (80.0-96.0); MONO # 0.6 10^3/uL (0.0-0.8); MONO % 8.7 % (0.0-5.0); NEUTROPHILS # 3.8 10^3/uL (1.5-8.5); NEUTROPHILS % 55.2 % (36.0-66.0); PLATELET COUNT, AUTOMATED 340 10^3/uL (150-450); RED BLOOD COUNT 4.47 10^6/uL (4.00-5.40); WHITE BLOOD COUNT 6.8 10^3/uL (4.0-10.0)
[2020-01-02 18:28] LABS: INR 0.99; PROTHROMBIN TIME 12.8 SECONDS (11.8-14.0)
[2020-01-02 18:30] LABS: D-DIMER QUANT 335.66 ng/ml (<500)
[2020-01-02 18:47] LABS: ALBUMIN 3.3 GM/DL (3.2-5.2); ALT/SGPT 26 U/L (12-78); BILIRUBIN,DIRECT < 0.1 MG/DL (0.0-0.2); BILIRUBIN,TOTAL 0.2 MG/DL (0.2-1.0); BLOOD UREA NITROGEN 15 MG/DL (7-18); C REACTIVE PROTEIN QUANTITATIV < 0.30 MG/DL (0.00-0.30); CALCIUM LEVEL 8.6 MG/DL (8.5-10.1); CARBON DIOXIDE LEVEL 24 MEQ/L (21-32); CHLORIDE LEVEL 108 MEQ/L (98-107); CK-MB VALUE MASS 1.9 NG/ML (<3.6); CPK CREATINE PHOSPHOKINASE 78 U/L (26-192); CREATININE FOR GFR 0.81 MG/DL (0.55-1.30); GLOMERULAR FILTRATION RATE > 60.0 (>58); GLUCOSE, FASTING 77 MG/DL (70-100); MB/CK RELATIVE INDEX 2.44 (< OR =4); NT-PRO BNP 45 PG/ML (<125); POTASSIUM SERUM 3.8 MEQ/L (3.5-5.1); SODIUM LEVEL 137 MEQ/L (136-145); TOTAL PROTEIN 6.9 GM/DL (6.4-8.2); TROPONIN I < 0.02 NG/ML (< 0.10)
[2020-01-02] MEDS ORDERED: PRED20TA PO (19:16)
[2020-01-02] MEDS ORDERED: VENTAER INH (19:16)
[2020-01-02 19:40] VITALS: BP 138/87
--- NOTE | 2020-01-03 07:41 | REP ---
CHEST, SINGLE VIEW: There is no evidence of acute infiltrate. No pleural effusion is seen. The heart is normal in size. The mediastinal silhouette is unremarkable. The visualized osseous structures are intact. IMPRESSION: No acute pulmonary disease. Electronically Signed by Freddy Echavarria MD 01/03/2020 09:46 P
--- NOTE | 2020-01-03 10:08 | ECGEPIP ---
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
== END 2020-01-02 19:52 | disposition home or self-care (01) ==
LOC: M ED 17:12
DX: J45.901 Unspecified asthma with (acute) exacerbation (principal); R10.9 Unspecified abdominal pain; R11.0 Nausea; R19.7 Diarrhea, unspecified; I11.9 Hypertensive heart disease without heart failure; I48.20 Chronic atrial fibrillation, unspecified; K21.9 Gastro-esophageal reflux disease without esophagitis; R42 Dizziness and giddiness; E03.9 Hypothyroidism, unspecified; K25.9 Gastric ulcer, unspecified as acute or chronic, without hemorrhage or perforation; F90.9 Attention-deficit hyperactivity disorder, unspecified type; F31.9 Bipolar disorder, unspecified; F41.9 Anxiety disorder, unspecified; Z98.84 Bariatric surgery status; Z88.5 Allergy status to narcotic agent; Z88.8 Allergy status to other drugs, medicaments and biological substances; Z79.51 Long term (current) use of inhaled steroids; Z79.899 Other long term (current) drug therapy
CPT/HCPCS: 71045; 80048; 80076; 82550; 82553; 83605; 83880; 85025; 85379; 85610; 86140; 87486; 87581; 87633; 87798; 93005; 94640; 94664; 96361; 96374; 99284; J2930; U0002

== ENCOUNTER → 2020-01-22 | Outpatient (CLI) | payer OTHER ==
[~2020-01-22] MED LIST changes: +VENTAER INH
== END ==
LOC: M LABSMTC 14:03
PROVIDERS: ATTEND Family Medicine
DX: Z11.59 Encounter for screening for other viral diseases (principal)
CPT/HCPCS: C8903; U0003

== ENCOUNTER 2020-01-23 13:31 | Emergency (ER) | payer OTHER ==
[~2020-01-23] VITALS: Ht 162.6 cm; Wt 10.7 kg
[2020-01-23 14:09] LABS: BASO % 0.4 % (0.0-1.0); EOS # 0.1 10^3/uL (0.0-0.5); EOS % 1.1 % (0.0-3.0); HEMATOCRIT 38.1 % (36.0-47.0); HEMOGLOBIN 11.9 g/dl (12.0-15.5); LYMPH # 1.5 10^3/uL (1.5-5.0); MEAN CORPUSCULAR HEMOGLOBIN 25.6 pg (27.0-33.0); MEAN CORPUSCULAR HGB CONC 31.2 g/dl (32.0-36.5); MEAN CORPUSCULAR VOLUME 81.9 fl (80.0-96.0); MONO # 0.5 10^3/uL (0.0-0.8); MONO % 8.6 % (0.0-5.0); NEUTROPHILS # 3.6 10^3/uL (1.5-8.5); NEUTROPHILS % 63.7 % (36.0-66.0); PLATELET COUNT, AUTOMATED 385 10^3/uL (150-450); RED BLOOD COUNT 4.65 10^6/uL (4.00-5.40); WHITE BLOOD COUNT 5.6 10^3/uL (4.0-10.0)
[2020-01-23] MEDS ORDERED: ALPRAZolam 0.5 MG TAB PO ONE (14:30)
[2020-01-23 14:38] LABS: BLOOD UREA NITROGEN 7 MG/DL (7-18); CALCIUM LEVEL 8.2 MG/DL (8.5-10.1); CARBON DIOXIDE LEVEL 22 MEQ/L (21-32); CHLORIDE LEVEL 111 MEQ/L (98-107); CK-MB VALUE MASS 1.5 NG/ML (<3.6); CPK CREATINE PHOSPHOKINASE 102 U/L (26-192); CREATININE FOR GFR 0.94 MG/DL (0.55-1.30); GLOMERULAR FILTRATION RATE > 60.0 (>58); GLUCOSE, FASTING 84 MG/DL (70-100); MB/CK RELATIVE INDEX 1.47 (< OR =4); POTASSIUM SERUM 3.4 MEQ/L (3.5-5.1); SODIUM LEVEL 140 MEQ/L (136-145); TROPONIN I < 0.02 NG/ML (< 0.10)
--- NOTE | 2020-01-23 14:40 | REP ---
Clinical: Chest pain. Comparison: 01/02/2020 Findings: The mediastinum and cardiac silhouette are stable and within normal limits for portable technique. The lung escalera are clear without acute consolidation, effusion, or pneumothorax. Skeletal structures are intact. Impression: No acute cardiopulmonary process appreciated. Electronically Signed by Brian Lanier MD 01/23/2020 02:31 P
[2020-01-23 15:50] VITALS: BP 149/96
--- NOTE | 2020-01-24 21:02 | ECGEPIP ---
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
== END 2020-01-23 15:55 | disposition home or self-care (01) ==
LOC: M ED 13:31
DX: F41.8 Other specified anxiety disorders (principal); I10 Essential (primary) hypertension; J45.909 Unspecified asthma, uncomplicated; E03.9 Hypothyroidism, unspecified; F33.9 Major depressive disorder, recurrent, unspecified; F90.9 Attention-deficit hyperactivity disorder, unspecified type; A69.20 Lyme disease, unspecified; Z98.84 Bariatric surgery status; Z79.899 Other long term (current) drug therapy; Z88.1 Allergy status to other antibiotic agents; Z88.5 Allergy status to narcotic agent; Z88.8 Allergy status to other drugs, medicaments and biological substances

== ENCOUNTER → 2020-02-05 | Outpatient (CLI) | payer OTHER ==
[2020-02-05 15:01] LABS: THYROGLOBULIN ANTIBODY < 15.0 U/ML (<60.0); THYROID PEROXIDASE ANTIBODY < 28.0 U/ML (<60.0); THYROID STIMULATING HORMONE 0.914 uIU/ML (0.358-3.740); TOTAL T3 108.4 NG/DL (60.0-181.0)
== END ==
LOC: M LAB 13:20
PROVIDERS: ATTEND Family Medicine
DX: E05.90 Thyrotoxicosis, unspecified without thyrotoxic crisis or storm (principal)

== ENCOUNTER → 2020-02-12 | Outpatient (CLI) | payer OTHER ==
--- NOTE | 2020-02-13 07:44 | REP ---
REASON FOR EXAM: Difficulty swallowing. Right lobe of the thyroid measures 4.4 x 1.6 x 1.4 cm and left lobe 4.9 x 1.7 x 1.6 cm. The isthmus is 2 mm. Incidental millimeter sized nodules are seen one in the right lobe superior pole and three in the left lobe, one superior two inferior. IMPRESSION: Minimal findings. No thyromegaly. Electronically Signed by Pierre Fowler DO 02/15/2020 10:52 A
== END ==
LOC: M LRY 13:18
PROVIDERS: ATTEND Family Medicine
DX: E04.1 Nontoxic single thyroid nodule (principal)

== ENCOUNTER 2020-03-12 03:30 | Emergency (ER) | payer OTHER ==
[~2020-03-12] VITALS: Ht 165.1 cm; Wt 109.1 kg
[2020-03-12 03:37] VITALS: BP 185/84
[2020-03-12] MEDS ORDERED: AMLO5TAB6 (03:44)
[2020-03-12] MEDS ORDERED: SERT25TA21 (03:44)
[2020-03-12] MEDS ORDERED: ALPRAZolam 0.5 MG TAB PO ONE (04:45)
--- NOTE | 2020-03-12 07:31 | REP ---
Clinical: Pain. Technique: AP and lateral soft tissue neck radiographs. (Three total views). Findings: The osseous structures are intact and age appropriate. Surrounding soft tissues are unremarkable. No subcutaneous emphysema, obvious swelling or foreign body. Airway is midline, patent and normal in appearance. No mass or mass effect. Impression: Normal soft tissue neck radiographs. Electronically Signed by Brian Lanier MD 03/12/2020 07:23 A
== END 2020-03-12 05:20 | disposition home or self-care (01) ==
LOC: M ED 03:30
DX: R07.0 Pain in throat (principal); F41.9 Anxiety disorder, unspecified; I10 Essential (primary) hypertension; K21.9 Gastro-esophageal reflux disease without esophagitis; Z88.8 Allergy status to other drugs, medicaments and biological substances; Z88.5 Allergy status to narcotic agent; Z88.1 Allergy status to other antibiotic agents

== ENCOUNTER → 2020-03-17 | Outpatient (REF) | payer OTHER, MEDICAID ==
[~2020-03-17] MED LIST changes: +AMLO1TAB24; +ASPI81TA86 PO; +SERT25TA21; +VYVA70CA3
[2020-03-17 17:43] LABS: BASO % 0.3 % (0.0-1.0); EOS # 0.1 10^3/uL (0.0-0.5); HEMATOCRIT 36.4 % (36.0-47.0); HEMOGLOBIN 11.3 g/dl (12.0-15.5); LYMPH # 3.4 10^3/uL (1.5-5.0); LYMPH % 30.2 % (24.0-44.0); MEAN CORPUSCULAR HEMOGLOBIN 25.1 pg (27.0-33.0); MEAN CORPUSCULAR VOLUME 80.7 fl (80.0-96.0); MONO # 0.9 10^3/uL (0.0-0.8); MONO % 8.3 % (0.0-5.0); NEUTROPHILS # 6.7 10^3/uL (1.5-8.5); NEUTROPHILS % 59.8 % (36.0-66.0); PLATELET COUNT, AUTOMATED 381 10^3/uL (150-450); RED BLOOD COUNT 4.51 10^6/uL (4.00-5.40); WHITE BLOOD COUNT 11.2 10^3/uL (4.0-10.0)
[2020-03-17 18:00] LABS: ALBUMIN 3.3 GM/DL (3.2-5.2); ALT/SGPT 21 U/L (12-78); BILIRUBIN,TOTAL 0.2 MG/DL (0.2-1.0); BLOOD UREA NITROGEN 13 MG/DL (7-18); CARBON DIOXIDE LEVEL 27 MEQ/L (21-32); CHLORIDE LEVEL 110 MEQ/L (98-107); CREATININE FOR GFR 0.95 MG/DL (0.55-1.30); GLOMERULAR FILTRATION RATE > 60.0 (>58); GLUCOSE, FASTING 86 MG/DL (70-100); POTASSIUM SERUM 3.7 MEQ/L (3.5-5.1); SODIUM LEVEL 143 MEQ/L (136-145); TOTAL PROTEIN 7.2 GM/DL (6.4-8.2)
[2020-03-19 18:07] LABS: Lyme Disease IgG/IgM Antibodie <0.91 ISR (0.00-0.90); Lyme Disease IgM Ab Quantitati <0.80 index (0.00-0.79)
== END ==
LOC: M LAB REF 16:11
PROVIDERS: ATTEND Nurse Practitioner Family
DX: R53.83 Other fatigue (principal); J02.9 Acute pharyngitis, unspecified; Z13.9 Encounter for screening, unspecified

== ENCOUNTER 2020-03-22 17:46 | Emergency (ER) | payer MEDICAID, OTHER ==
[~2020-03-22] VITALS: Ht 162.6 cm; Wt 109.2 kg
[~2020-03-22 17:46] MED LIST changes: -ASPI81TA86 PO; -VYVA70CA3
[2020-03-22] MEDS ORDERED: LORazepam 2 MG/ML VIAL IV STA ×2 (18:11→22:08)
[2020-03-22 18:30] LABS: BASO % 0.3 % (0.0-1.0); EOS # 0.1 10^3/uL (0.0-0.5); EOS % 1.3 % (0.0-3.0); HEMATOCRIT 37.4 % (36.0-47.0); HEMOGLOBIN 11.6 g/dl (12.0-15.5); LYMPH # 2.2 10^3/uL (1.5-5.0); LYMPH % 28.4 % (24.0-44.0); MEAN CORPUSCULAR HEMOGLOBIN 24.9 pg (27.0-33.0); MEAN CORPUSCULAR VOLUME 80.4 fl (80.0-96.0); MONO # 0.6 10^3/uL (0.0-0.8); MONO % 7.8 % (0.0-5.0); NEUTROPHILS # 4.8 10^3/uL (1.5-8.5); NEUTROPHILS % 61.7 % (36.0-66.0); PLATELET COUNT, AUTOMATED 349 10^3/uL (150-450); RED BLOOD COUNT 4.65 10^6/uL (4.00-5.40); WHITE BLOOD COUNT 7.8 10^3/uL (4.0-10.0)
[2020-03-22] MEDS ORDERED: ISOVUE-370 76% 100ML VIAL As Ordered ONE (18:56)
--- NOTE | 2020-03-22 19:50 | REPVR ---
PROCEDURE INFORMATION: Exam: CT Angiography Chest With Contrast Exam date and time: 03/22/2020 7:24 PM Age: 44 years old Clinical indication: Shortness of breath; Additional info: Cp/sob TECHNIQUE: Imaging protocol: Computed tomographic angiography of the chest with intravenous contrast. 3D rendering: MIP and/or 3D reconstructed images were created by the technologist. Radiation optimization: All CT scans at this facility use at least one of these dose optimization techniques: automated exposure control; mA and/or kV adjustment per patient size (includes targeted exams where dose is matched to clinical indication); or iterative reconstruction. Contrast material: ISOVUE 370; Contrast volume: 75 ml; Contrast route: INTRAVENOUS (IV); COMPARISON: CT ANGIO CHEST 01/27/2019 10:58 AM FINDINGS: Pulmonary arteries: Normal. No pulmonary emboli. Aorta: Unremarkable. No aortic aneurysm. No aortic dissection. Lungs: Unremarkable. No consolidation. No masses. There is subpleural atelectasis of the dependent portions of the lungs. Pleural space: Unremarkable. No pneumothorax. No pleural effusion. Heart: Unremarkable. No cardiomegaly. No pericardial effusion. Lymph nodes: Unremarkable. No enlarged lymph nodes. Bones/joints: Unremarkable. No acute fracture. Soft tissues: Unremarkable. IMPRESSION: Evidence of pulmonary emboli or pneumonia. Electronically signed by: Jessica Dalton On 03/22/2020 19:49:33 PM
--- NOTE | 2020-03-22 21:06 | ECGEPIP ---
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
[2020-03-22 22:55] VITALS: BP 154/94
--- NOTE | 2020-03-23 05:25 | REP ---
CHEST, SINGLE VIEW: There is no evidence of acute infiltrate. No pleural effusion is seen. The heart is normal in size. The mediastinal silhouette is unremarkable. The visualized osseous structures are intact. IMPRESSION: No acute pulmonary disease. Electronically Signed by Freddy Echavarria MD 03/23/2020 11:11 P
--- NOTE | 2020-03-23 17:44 | ECGEPIP ---
[facility] - ED Test Date: 2020-03-22 Pat Name: DELON CARR Department: Room: - Gender: Female Rolls Baker: chayito : 1975 Requested By: Kathy Dubois Order Number: [id number] Reading MD: Kathy Dubois Measurements Intervals [place] Rate: 86 P: 49 [place]: 155 QRS: -22 QRSD: 88 T: 17 QT: 378 QTc: 453 Interpretive Statements SINUS RHYTHM BORDERLINE LEFT AXIS DEVIATION SIMILAR 03/22/20 Electronically Signed on 03-23-2020 17:44:27 EDT by Kathy Dubois
== END 2020-03-22 23:09 | disposition home or self-care (01) ==
LOC: M ED 17:46
DX: F41.0 Panic disorder [episodic paroxysmal anxiety] (principal); R07.9 Chest pain, unspecified; I34.1 Nonrheumatic mitral (valve) prolapse; D68.2 Hereditary deficiency of other clotting factors; F41.9 Anxiety disorder, unspecified; Z82.49 Family history of ischemic heart disease and other diseases of the circulatory system; Z79.899 Other long term (current) drug therapy; Z88.8 Allergy status to other drugs, medicaments and biological substances; Z88.5 Allergy status to narcotic agent
CPT/HCPCS: 71045; 71275; 80047; 85025; 93005; 93041; 94760; 96374; 96376; 99285; J2060; Q9967

== ENCOUNTER → 2020-04-14 | Outpatient (CLI) | payer OTHER ==
[~2020-04-14] MED LIST changes: +ASPI81TA86 PO; +VYVA70CA3
== END ==
LOC: M LABSMTC 04-13 09:35
PROVIDERS: ATTEND Anesthesiology
DX: Z01.818 Encounter for other preprocedural examination (principal); Z11.59 Encounter for screening for other viral diseases
CPT/HCPCS: 87486; 87581; 87633; 87798; C9803

== ENCOUNTER 2020-04-18 08:00 | Day surgery (SDC) | payer OTHER ==
[~2020-04-18 08:00] MED LIST changes: -ASPI81TA86 PO; +LIDOCAINE 2% 100MG/5ML SDV (FOR ANES.) ONE; +LIDOCAINE 2% W/ EPINEPHRINE 1.7 ML DENTAL INJ ONE; +MIDAZOLAM INJ 2MG/2ML VIAL (J2250 PER 1MG) ONE; +ONDANSETRON 4MG/2ML VIAL ONE; +ROCURONIUM BROMIDE 50 MG/5 ML VIAL ONE; -VYVA70CA3; +dexameTHASONE 4 MG/ML 1ML VIAL (J1100 PER 1MG) ONE; +fentaNYL 100 MCG/2 ML INJECTION (J3010) ONE; +propofoL 200 MG/20 ML VIAL ONE
[2020-04-18] MEDS ORDERED: UNASYN 3 GM VIAL ONE (08:10)
[2020-04-18] MEDS ORDERED: fentaNYL 100 MCG/2 ML INJECTION (J3010) ONE (08:53)
[2020-04-18] MEDS ORDERED: LIDOCAINE 2% 100MG/5ML SDV (FOR ANES.) ONE (09:15)
[2020-04-18] MEDS ORDERED: SUGAMMADEX SODIUM 500 MG/5 ML VIAL (BRIDION) ONE (09:37)
[2020-04-18] MEDS ORDERED: MIDAZOLAM INJ 2MG/2ML VIAL (J2250 PER 1MG) ONE (10:49)
[2020-04-18] MEDS ORDERED: PERCOCET 5MG/325MG TAB ONE ×2 (11:00→12:29)
--- NOTE | 2020-06-16 13:30 | RO ---
DATE OF OPERATION: 04/18/2020 PREOPERATIVE DIAGNOSES: * Morbid obesity. * Severe dental anxiety. * Hopeless dentition including teeth 1, 2, 3, 4, 6, 7, 8, 9, 10, 11, 12, 15, 19, 20, 21, 22, 23, 24, 25, 26, and 27. POSTOPERATIVE DIAGNOSES: Status post the above. PROCEDURE(S) PERFORMED: Extraction of all the aforementioned teeth. ANESTHESIA: General endotracheal anesthesia via nasal SARAH. SPECIMENS: Teeth for gross only. INDICATIONS FOR PROCEDURE: Eli is a pleasant 44-year-old female who was referred to my office by her dentist for evaluation for extraction of all of her remaining teeth. She does have a severe dental anxiety. Her physical examination reveals that she is morbidly obese and has several grossly decayed teeth and she does desire to have the procedure performed under general anesthesia. She is not a good candidate for office intravenous (IV) sedation; therefore, I offered her to have the procedure done in an operating room setting under general anesthesia. All the risks, benefits, and alternatives to the procedure were explained to the patient in detail and they were understood. Informed consent was obtained, explained, and signed by the patient. Complete history and physical was performed and is in the patients chart. DESCRIPTION OF PROCEDURE: Patient reported to preop holding area and any last minute questions were addressed. The history, physical, and consent were updated. At that point, the patient was taken back to the operating room. She was laid supine on the operating room table. Ulnar nerve protectors were placed. Noninvasive cardiac monitors were applied. At that point, the patient underwent general anesthesia and was intubated with a nasal SARAH. She was then prepped and draped in the usual sterile fashion. A time-out procedure was performed to identify the patient, the procedure, and any other precautions. A moist throat pack was inserted in the patients oropharynx followed by the administration of 2% Lidocaine with 1:100,000 epinephrine as local infiltration of blocks. Attention was then given to the upper right quadrant where teeth 1, 2, 3, 4, and 6 where a circular full-thickness flap was released. Small buccal bone was removed. Teeth were then luxated and delivered namely teeth 1, 2, 3, 4, and 6. All of the sockets were curetted and irrigated. No sinus exposure was noted. Flaps were then closed with 3-0 chromics. Attention was then given to teeth 7, 8, 9, and 10, which were luxated with ease in a routine fashion and they were delivered with forceps. A full-thickness circular flap was then released and incisors 11, 12, 15, 19, 20, 21, 22, 27, and 28. A small amount of buccal bone was removed from all these teeth sites and the teeth were luxated and delivered without any issues. No sinus exposure was noted. All the sockets were curetted and irrigated. Alveolar nerve was not noted. All the flaps were closed with 3-0 Chromic sutures. At this point, attention was then given to teeth 23, 24, 25, and 26, which were luxated and delivered with ease in a routine fashion with forceps. Once again, all the sockets were curetted and irrigated. Once all the teeth were removed, the oral cavity was irrigated and suctioned. The throat pack was removed. The patient was then awakened from general anesthesia and taken back to the post anesthesia care unit (PACU) for further observation. COMPLICATIONS: None. ESTIMATED BLOOD LOSS: 50 mL. DRAINS: None placed. MTDD
== END 2020-04-18 13:20 | disposition home or self-care (01) ==
LOC: M SDC 08:00
PROVIDERS: ATTEND Dentist
DX: K02.9 Dental caries, unspecified (principal); K57.92 Diverticulitis of intestine, part unspecified, without perforation or abscess without bleeding; K44.9 Diaphragmatic hernia without obstruction or gangrene; K58.8 Other irritable bowel syndrome; I10 Essential (primary) hypertension; E28.2 Polycystic ovarian syndrome; Z79.899 Other long term (current) drug therapy; Z87.891 Personal history of nicotine dependence; K21.9 Gastro-esophageal reflux disease without esophagitis; F41.9 Anxiety disorder, unspecified; Z88.5 Allergy status to narcotic agent; Z88.8 Allergy status to other drugs, medicaments and biological substances; E66.01 Morbid (severe) obesity due to excess calories
CPT/HCPCS: 88300; D7210; D9223; J1100; J2250; J2405; J3010; U0002

== ENCOUNTER 2020-05-08 20:09 | Emergency (ER) | payer OTHER ==
[~2020-05-08] VITALS: Ht 162.6 cm; Wt 112.3 kg
[~2020-05-08 20:09] MED LIST changes: -LIDOCAINE 2% 100MG/5ML SDV (FOR ANES.) ONE; -LIDOCAINE 2% W/ EPINEPHRINE 1.7 ML DENTAL INJ ONE; -MIDAZOLAM INJ 2MG/2ML VIAL (J2250 PER 1MG) ONE; -ONDANSETRON 4MG/2ML VIAL ONE; -ROCURONIUM BROMIDE 50 MG/5 ML VIAL ONE; -dexameTHASONE 4 MG/ML 1ML VIAL (J1100 PER 1MG) ONE; -fentaNYL 100 MCG/2 ML INJECTION (J3010) ONE; -propofoL 200 MG/20 ML VIAL ONE
[2020-05-08] MEDS ORDERED: ASPI81TA86 PO (20:28)
[2020-05-08] MEDS ORDERED: LORazepam 2 MG/ML VIAL IV STA (20:44)
[2020-05-08] MEDS ORDERED: ASPIRIN 81 MG CHEW TABLET PO ONE (20:45)
[2020-05-08 20:53] LABS: BASO % 0.3 % (0.0-1.0); EOS # 0.2 10^3/uL (0.0-0.5); EOS % 3.1 % (0.0-3.0); HEMATOCRIT 34.3 % (36.0-47.0); HEMOGLOBIN 10.7 g/dl (12.0-15.5); LYMPH # 2.3 10^3/uL (1.5-5.0); LYMPH % 33.7 % (24.0-44.0); MEAN CORPUSCULAR HEMOGLOBIN 24.6 pg (27.0-33.0); MEAN CORPUSCULAR HGB CONC 31.2 g/dl (32.0-36.5); MEAN CORPUSCULAR VOLUME 78.9 fl (80.0-96.0); MONO # 0.6 10^3/uL (0.0-0.8); MONO % 8.9 % (0.0-5.0); NEUTROPHILS # 3.7 10^3/uL (1.5-8.5); NEUTROPHILS % 53.9 % (36.0-66.0); PLATELET COUNT, AUTOMATED 380 10^3/uL (150-450); RED BLOOD COUNT 4.35 10^6/uL (4.00-5.40); WHITE BLOOD COUNT 6.8 10^3/uL (4.0-10.0)
[2020-05-08 21:04] LABS: BLOOD UREA NITROGEN 11 MG/DL (7-18); CALCIUM LEVEL 8.7 MG/DL (8.5-10.1); CARBON DIOXIDE LEVEL 23 MEQ/L (21-32); CHLORIDE LEVEL 111 MEQ/L (98-107); CK-MB VALUE MASS 1.3 NG/ML (<3.6); CPK CREATINE PHOSPHOKINASE 124 U/L (26-192); CREATININE FOR GFR 0.86 MG/DL (0.55-1.30); GLOMERULAR FILTRATION RATE > 60.0 (>58); GLUCOSE, FASTING 86 MG/DL (70-100); MB/CK RELATIVE INDEX 1.05 (< OR =4); POTASSIUM SERUM 3.8 MEQ/L (3.5-5.1); SODIUM LEVEL 141 MEQ/L (136-145); TROPONIN I < 0.02 NG/ML (< 0.10)
--- NOTE | 2020-05-08 22:09 | REPVR ---
PROCEDURE INFORMATION: Exam: US Duplex Lower Extremity Veins, Bilateral Exam date and time: 05/08/2020 9:51 PM Age: 44 years old Clinical indication: Pain; Edema, localized; Lower extremity, bilateral; Leg, upper; Additional info: Leg pain/swelling TECHNIQUE: Imaging protocol: Real-time duplex ultrasound of the extremities with 2-D cornejo scale, color Doppler flow and spectral waveform analysis with image documentation. Complete exam focused on the bilateral lower extremity veins. COMPARISON: US Duplex, Ext LOWER veins, bilat 01/27/2019 10:04 AM FINDINGS: Right deep veins: Unremarkable. The common femoral, femoral, proximal profunda femoral and popliteal veins are patent without thrombus. Normal Doppler waveforms. Normal compressibility and/or augmentation response. Right superficial veins: Saphenofemoral junction is patent without thrombus. Left deep veins: Unremarkable. The common femoral, femoral, proximal profunda femoral and popliteal veins are patent without thrombus. Normal Doppler waveforms. Normal compressibility and/or augmentation response. Left superficial veins: Saphenofemoral junction is patent without thrombus. Soft tissues: Unremarkable. IMPRESSION: No evidence of deep vein thrombosis. Electronically signed by: Demetrius Chicas On 05/08/2020 22:09:14 PM
[2020-05-08] MEDS ORDERED: amLODIPine 5 MG TAB PO ONE (22:30)
[2020-05-08] MEDS ORDERED: KETOROLAC 30 MG/ML 1ML VIAL IV ONE (22:30)
[2020-05-08] MEDS ORDERED: CARVedilol 6.25 MG TAB PO ONE (22:30)
[2020-05-09 00:09] VITALS: BP 148/102
[2020-05-09] MEDS ORDERED: diazePAM 5 MG TAB PO ONE (00:45)
--- NOTE | 2020-05-22 08:10 | ECGEPIP ---
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
--- NOTE | 2020-06-06 08:29 | REP ---
CHEST X-RAY: 2-VIEWS TECHNIQUE: PA and lateral COMPARISON: 01/27/19 FINDINGS: Mediastinum and cardiac silhouette are normal. Lung escalera are clear. No consolidation, effusion or pneumothorax. Skeletal structures are intact. IMPRESSION: Normal chest x-ray. No acute cardiopulmonary process. MTDD
== END 2020-05-09 01:02 | disposition home or self-care (01) ==
LOC: M ED 20:09
DX: F41.9 Anxiety disorder, unspecified (principal); F45.0 Somatization disorder; I10 Essential (primary) hypertension; Z79.51 Long term (current) use of inhaled steroids; Z79.82 Long term (current) use of aspirin; Z79.899 Other long term (current) drug therapy; Z87.891 Personal history of nicotine dependence; Z88.6 Allergy status to analgesic agent; Z88.8 Allergy status to other drugs, medicaments and biological substances
CPT/HCPCS: 71046; 80048; 82550; 82553; 85025; 93005; 93041; 93970; 94760; 96374; 96375; 99285; J1885; J2060

== ENCOUNTER → 2020-05-13 | Outpatient (CLI) | payer OTHER ==
[~2020-05-13] MED LIST changes: +ASPI81TA86 PO; +VYVA70CA3
[2020-05-13 16:07] LABS: BASO % 0.3 % (0.0-1.0); EOS # 0.1 10^3/uL (0.0-0.5); EOS % 2.2 % (0.0-3.0); HEMATOCRIT 36.4 % (36.0-47.0); LYMPH # 2.2 10^3/uL (1.5-5.0); LYMPH % 34.8 % (24.0-44.0); MEAN CORPUSCULAR HEMOGLOBIN 24.1 pg (27.0-33.0); MEAN CORPUSCULAR HGB CONC 30.2 g/dl (32.0-36.5); MEAN CORPUSCULAR VOLUME 79.6 fl (80.0-96.0); MONO # 0.7 10^3/uL (0.0-0.8); MONO % 10.9 % (0.0-5.0); NEUTROPHILS # 3.3 10^3/uL (1.5-8.5); NEUTROPHILS % 51.6 % (36.0-66.0); PLATELET COUNT, AUTOMATED 388 10^3/uL (150-450); RED BLOOD COUNT 4.57 10^6/uL (4.00-5.40); WHITE BLOOD COUNT 6.4 10^3/uL (4.0-10.0)
[2020-05-13 16:18] LABS: THYROID STIMULATING HORMONE 0.694 uIU/ML (0.358-3.740); THYROXINE (T4) 9.3 UG/DL (4.5-12.0)
== END ==
LOC: M LAB 15:18
PROVIDERS: ATTEND Obstetrics & Gynecology Obstetrics
DX: Z71.9 Counseling, unspecified (principal)

== ENCOUNTER 2020-05-16 18:23 | Emergency (ER) | payer OTHER ==
[~2020-05-16] VITALS: Ht 162.6 cm; Wt 119.0 kg
[~2020-05-16 18:23] MED LIST changes: -VYVA70CA3
[2020-05-16] MEDS ORDERED: VYVA70CA3 (18:36)
[2020-05-16] MEDS ORDERED: ONDANSETRON 4MG/2ML VIAL IV ONE (19:15)
[2020-05-16] MEDS ORDERED: MORPHINE 4 MG/ML 1ML VIAL/SYRINGE (J2270) IV PRN (19:15)
[2020-05-16 19:29] LABS: BASO % 0.3 % (0.0-1.0); EOS # 0.2 10^3/uL (0.0-0.5); EOS % 2.5 % (0.0-3.0); HEMATOCRIT 34.5 % (36.0-47.0); HEMOGLOBIN 10.6 g/dl (12.0-15.5); LYMPH # 2.1 10^3/uL (1.5-5.0); LYMPH % 32.7 % (24.0-44.0); MEAN CORPUSCULAR HEMOGLOBIN 24.5 pg (27.0-33.0); MEAN CORPUSCULAR HGB CONC 30.7 g/dl (32.0-36.5); MEAN CORPUSCULAR VOLUME 79.7 fl (80.0-96.0); MONO # 0.5 10^3/uL (0.0-0.8); MONO % 8.2 % (0.0-5.0); NEUTROPHILS # 3.6 10^3/uL (1.5-8.5); PLATELET COUNT, AUTOMATED 340 10^3/uL (150-450); RED BLOOD COUNT 4.33 10^6/uL (4.00-5.40); WHITE BLOOD COUNT 6.5 10^3/uL (4.0-10.0)
[2020-05-16 19:32] LABS: ALBUMIN 3.3 GM/DL (3.2-5.2); ALT/SGPT 22 U/L (12-78); BILIRUBIN,DIRECT < 0.1 MG/DL (0.0-0.2); BILIRUBIN,TOTAL 0.2 MG/DL (0.2-1.0); BLOOD UREA NITROGEN 11 MG/DL (7-18); CALCIUM LEVEL 8.6 MG/DL (8.5-10.1); CARBON DIOXIDE LEVEL 25 MEQ/L (21-32); CHLORIDE LEVEL 110 MEQ/L (98-107); CK-MB VALUE MASS < 1.0 NG/ML (<3.6); CPK CREATINE PHOSPHOKINASE 87 U/L (26-192); CREATININE FOR GFR 1.03 MG/DL (0.55-1.30); GLOMERULAR FILTRATION RATE > 60.0 (>58); GLUCOSE, FASTING 87 MG/DL (70-100); LIPASE 158 U/L (73-393); MB/CK RELATIVE INDEX 1.15 (< OR =4); POTASSIUM SERUM 3.9 MEQ/L (3.5-5.1); SODIUM LEVEL 139 MEQ/L (136-145); TOTAL PROTEIN 6.9 GM/DL (6.4-8.2); TROPONIN I < 0.02 NG/ML (< 0.10)
[2020-05-16 20:06] LABS: INR 1.05; PROTHROMBIN TIME 13.9 SECONDS (11.8-14.0)
[2020-05-16 20:07] LABS: PARTIAL THROMBOPLASTIN TIME 28.1 SECONDS (25.0-38.4)
[2020-05-16] MEDS ORDERED: diazePAM 2 MG TAB PO ONE (20:15)
[2020-05-16] MEDS ORDERED: ISOVUE-370 76% 100ML VIAL As Ordered ONE (20:28)
--- NOTE | 2020-05-16 20:57 | REPVR ---
PROCEDURE INFORMATION: Exam: CT Abdomen And Pelvis With Contrast Exam date and time: 05/16/2020 8:31 PM Age: 44 years old Clinical indication: Abdominal pain; Localized; Upper; Additional info: Upper abd pain TECHNIQUE: Imaging protocol: Computed tomography of the abdomen and pelvis with intravenous contrast. Radiation optimization: All CT scans at this facility use at least one of these dose optimization techniques: automated exposure control; mA and/or kV adjustment per patient size (includes targeted exams where dose is matched to clinical indication); or iterative reconstruction. Contrast material: ISOVUE 370; Contrast volume: 100 ml; Contrast route: INTRAVENOUS (IV); COMPARISON: No relevant prior studies available. FINDINGS: Liver: There is a diffuse decrease in hepatic parenchymal density, consistent with steatosis. Gallbladder and bile ducts: Normal. No calcified stones. No ductal dilation. Pancreas: Visible nondilated pancreatic duct. Pancreas otherwise unremarkable. Spleen: Normal. No splenomegaly. Adrenals: Normal. No mass. Kidneys and ureters: Normal. No hydronephrosis. Stomach and bowel: This patient is status post gastric bypass surgery. Bowel sutures demonstrated in the right lower quadrant. Appendix: There has been an appendectomy. Intraperitoneal space: Unremarkable. No free air. No significant fluid collection. Vasculature: Unremarkable. No abdominal aortic aneurysm. Lymph nodes: Unremarkable. No enlarged lymph nodes. Bladder: Unremarkable as visualized. Reproductive: There has been a hysterectomy. Right adnexal cyst measures 3.3 x 2.9 x 2.3 cm. Finding likely functional. Bones/joints: Moderate to severe central spinal stenosis L4-L5. Soft tissues: Unremarkable. IMPRESSION: 1. There is a diffuse decrease in hepatic parenchymal density, consistent with steatosis. 2. This patient is status post gastric bypass surgery. 3. There has been a hysterectomy. 4. Functional cyst right ovary. Electronically signed by: Pernell Blackburn On 05/16/2020 20:56:37 PM
--- NOTE | 2020-05-16 21:03 | REPVR ---
PROCEDURE INFORMATION: Exam: CT Angiography Chest With Contrast Exam date and time: 05/16/2020 8:31 PM Age: 44 years old Clinical indication: Chest pain; Additional info: Chest pain, SOB TECHNIQUE: Imaging protocol: Computed tomographic angiography of the chest with intravenous contrast. 3D rendering (Not supervised by radiologist): MIP and/or 3D reconstructed images were created by the technologist. Radiation optimization: All CT scans at this facility use at least one of these dose optimization techniques: automated exposure control; mA and/or kV adjustment per patient size (includes targeted exams where dose is matched to clinical indication); or iterative reconstruction. Contrast material: ISOVUE 370; Contrast volume: 100 ml; Contrast route: INTRAVENOUS (IV); COMPARISON: CT ANGIO CHEST 03/22/2020 7:20 PM FINDINGS: Pulmonary arteries: There are no pulmonary emboli. Aorta: There is no aortic dissection or aneurysm. Lungs: There is a small linear parenchymal scar or nodular density demonstrated in the right lower lobe measuring 2 x 3 mm stable in comparison to the prior study. Finding likely postinflammatory. No follow-up suggested. Remaining lungs are clear. Pleural space: Unremarkable. No pneumothorax. No pleural effusion. Heart: Unremarkable. No cardiomegaly. No pericardial effusion. Lymph nodes: Unremarkable. No enlarged lymph nodes. Bones/joints: The spine demonstrates mild degenerative changes. Shallow scoliosis. Soft tissues: Unremarkable. IMPRESSION: 1. There is no aortic dissection or aneurysm. 2. There are no pulmonary emboli. 3. No acute pulmonary parenchymal abnormalities. Electronically signed by: Pernell Blackburn On 05/16/2020 21:03:30 PM
--- NOTE | 2020-05-16 21:32 | REPVR ---
PROCEDURE INFORMATION: Exam: US Duplex Lower Extremity Veins, Bilateral Exam date and time: 05/16/2020 9:12 PM Age: 44 years old Clinical indication: Pain; Leg, upper and leg, lower; Bilateral; Additional info: Leg pain R/O dvt TECHNIQUE: Imaging protocol: Real-time duplex ultrasound of the extremities with 2-D cornejo scale, color Doppler flow and spectral waveform analysis with image documentation. Complete exam focused on the bilateral lower extremity veins. COMPARISON: US Duplex, Ext LOWER veins, bilat 05/08/2020 9:20 PM FINDINGS: Right deep veins: Unremarkable. The common femoral, femoral, proximal profunda femoral and popliteal veins are patent without thrombus. Normal Doppler waveforms. Normal compressibility and/or augmentation response. Right superficial veins: Saphenofemoral junction is patent without thrombus. Left deep veins: Unremarkable. The common femoral, femoral, proximal profunda femoral and popliteal veins are patent without thrombus. Normal Doppler waveforms. Normal compressibility and/or augmentation response. Left superficial veins: Saphenofemoral junction is patent without thrombus. Soft tissues: Unremarkable. IMPRESSION: Negative bilateral lower extremity venous duplex exam without evidence of deep venous thrombosis. Electronically signed by: Juan Chatterjee On 05/16/2020 21:31:45 PM
[2020-05-16] MEDS ORDERED: GI COCKTAIL 50ML BTL(HYOSCYAMINE/MAALOX/LIDOCAINE VISCOUS)(1:3:1) PO ONE (22:30)
[2020-05-16 22:31] LABS: CK-MB VALUE MASS 1.2 NG/ML (<3.6); CPK CREATINE PHOSPHOKINASE 81 U/L (26-192); MB/CK RELATIVE INDEX 1.48 (< OR =4); TROPONIN I < 0.02 NG/ML (< 0.10)
[2020-05-16] MEDS ORDERED: CARVedilol 12.5 MG TAB PO ONE (22:45)
[2020-05-16] MEDS ORDERED: amLODIPine 5 MG TAB PO ONE (22:45)
[2020-05-16] MEDS ORDERED: NITROGLYCERIN 0.4 MG SUBL TABLET SL STA (23:02)
[2020-05-16 23:08] VITALS: BP 167/98
[2020-05-16 23:43] VITALS: BP 155/83
--- NOTE | 2020-05-20 17:29 | ECGEPIP ---
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
--- NOTE | 2020-05-20 17:32 | ECGEPIP ---
[facility] - ED Test Date: 2020-05-16 Pat Name: DELON CARR Department: Room: - Gender: Female Cook Morning: jake : 1975 Requested By: BRENDAN Palacios Order Number: [id number] Reading MD: Kathy Dubois Measurements Intervals [place] Rate: 75 P: 56 [place]: 162 QRS: -16 QRSD: 94 T: 15 QT: 388 QTc: 433 Interpretive Statements SINUS RHYTHM MINIMAL VOLTAGE CRITERIA FOR LVH, CONSIDER NORMAL VARIANT BORDERLINE ECG PRWP SEE SCANNED DOWNTIME REPORT.
== END 2020-05-16 23:45 | disposition home or self-care (01) ==
LOC: M ED 18:23
DX: R10.13 Epigastric pain (principal); R06.02 Shortness of breath; I11.0 Hypertensive heart disease with heart failure; I50.9 Heart failure, unspecified; A69.20 Lyme disease, unspecified; E04.1 Nontoxic single thyroid nodule; Z79.899 Other long term (current) drug therapy; Z79.82 Long term (current) use of aspirin; Z88.5 Allergy status to narcotic agent; Z88.8 Allergy status to other drugs, medicaments and biological substances
CPT/HCPCS: 71275; 74177; 80048; 80076; 82550; 82553; 83690; 85025; 85610; 85730; 93005; 93041; 93970; 94760; 96374; 96375; 99284; J2270; J2405; Q9967

== ENCOUNTER 2020-05-17 15:18 | Emergency (ER) | payer OTHER ==
[~2020-05-17] VITALS: Ht 162.6 cm; Wt 111.5 kg
[~2020-05-17 15:18] MED LIST changes: +VYVA70CA3
--- NOTE | 2020-05-17 15:48 | REPVR ---
PROCEDURE INFORMATION: Exam: XR Chest, 2 Views Exam date and time: 05/17/2020 3:39 PM Age: 44 years old Clinical indication: Shortness of breath; Additional info: Chest pain TECHNIQUE: Imaging protocol: XR of the chest Views: 2 views. COMPARISON: CR Chest, 2 view PA, Lat 05/08/2020 8:51 PM FINDINGS: Lungs: Unremarkable. No consolidation. Pleural space: Unremarkable. No pleural effusion. No pneumothorax. Heart/Mediastinum: Unremarkable. No cardiomegaly. Bones/joints: Mild degenerative changes of the thoracic spine. No fracture. IMPRESSION: No acute findings. No change from prior x-ray . Electronically signed by: Yanick Husain On 05/17/2020 15:48:04 PM
[2020-05-17 16:11] LABS: BASO % 0.4 % (0.0-1.0); EOS # 0.1 10^3/uL (0.0-0.5); EOS % 2.1 % (0.0-3.0); HEMATOCRIT 36.4 % (36.0-47.0); HEMOGLOBIN 11.1 g/dl (12.0-15.5); LYMPH # 1.6 10^3/uL (1.5-5.0); LYMPH % 24.3 % (24.0-44.0); MEAN CORPUSCULAR HEMOGLOBIN 24.3 pg (27.0-33.0); MEAN CORPUSCULAR HGB CONC 30.5 g/dl (32.0-36.5); MEAN CORPUSCULAR VOLUME 79.8 fl (80.0-96.0); MONO # 0.6 10^3/uL (0.0-0.8); MONO % 8.3 % (0.0-5.0); NEUTROPHILS # 4.4 10^3/uL (1.5-8.5); NEUTROPHILS % 64.6 % (36.0-66.0); PLATELET COUNT, AUTOMATED 338 10^3/uL (150-450); RED BLOOD COUNT 4.56 10^6/uL (4.00-5.40); WHITE BLOOD COUNT 6.8 10^3/uL (4.0-10.0)
[2020-05-17 16:22] LABS: INR 1.02; PROTHROMBIN TIME 13.6 SECONDS (11.8-14.0)
[2020-05-17 16:42] LABS: ALBUMIN 3.1 GM/DL (3.2-5.2); ALT/SGPT 20 U/L (12-78); BILIRUBIN,DIRECT < 0.1 MG/DL (0.0-0.2); BILIRUBIN,TOTAL 0.2 MG/DL (0.2-1.0); BLOOD UREA NITROGEN 11 MG/DL (7-18); CALCIUM LEVEL 8.4 MG/DL (8.5-10.1); CARBON DIOXIDE LEVEL 25 MEQ/L (21-32); CHLORIDE LEVEL 110 MEQ/L (98-107); CK-MB VALUE MASS < 1.0 NG/ML (<3.6); CPK CREATINE PHOSPHOKINASE 77 U/L (26-192); CREATININE FOR GFR 0.95 MG/DL (0.55-1.30); GLOMERULAR FILTRATION RATE > 60.0 (>58); GLUCOSE, FASTING 80 MG/DL (70-100); LIPASE 135 U/L (73-393); POTASSIUM SERUM 4.4 MEQ/L (3.5-5.1); SODIUM LEVEL 140 MEQ/L (136-145); TOTAL PROTEIN 6.6 GM/DL (6.4-8.2); TROPONIN I < 0.02 NG/ML (< 0.10)
[2020-05-17] MEDS ORDERED: METOCLOPRAMIDE INJ 10MG/2ML VIAL (J2765 PER 1) IV ONE (17:00)
[2020-05-17] MEDS ORDERED: KETOROLAC 30 MG/ML 1ML VIAL IV ONE (17:00)
[2020-05-17] MEDS ORDERED: ACETAMINOPHEN 500 MG TAB PO ONE (17:00)
[2020-05-17] MEDS ORDERED: NS 1,000 ML IV ONE (17:00)
[2020-05-17] MEDS ORDERED: diphenhydrAMINE 50MG/ML VIAL (J1200) IV ONE (17:00)
[2020-05-17 18:22] VITALS: BP 108/71
--- NOTE | 2020-05-20 17:35 | ECGEPIP ---
[facility] - ED Test Date: 2020-05-17 Pat Name: DELON CARR Department: Room: - Gender: Female Research Biologist: SHIRA : 1975 Requested By: BRENDAN Palacios Order Number: [id number] Reading MD: Kathy Dubois Measurements Intervals [place] Rate: 78 P: 61 [place]: 155 QRS: -13 QRSD: 95 T: 15 QT: 382 QTc: 437 Interpretive Statements SINUS RHYTHM NORMAL ECG SEE SCANNED DOWNTIME REPORT
== END 2020-05-17 18:24 | disposition home or self-care (01) ==
LOC: M ED 15:18
DX: R07.89 Other chest pain (principal); G43.909 Migraine, unspecified, not intractable, without status migrainosus; I11.0 Hypertensive heart disease with heart failure; A69.20 Lyme disease, unspecified; E04.1 Nontoxic single thyroid nodule; Z79.899 Other long term (current) drug therapy; Z79.82 Long term (current) use of aspirin; Z88.5 Allergy status to narcotic agent; Z88.8 Allergy status to other drugs, medicaments and biological substances
CPT/HCPCS: 71046; 80048; 80076; 82550; 82553; 83690; 85025; 85610; 85730; 93005; 93041; 94760; 96361; 96374; 96375; 99284; J1200; J1885; J2765

== ENCOUNTER → 2020-06-06 | Outpatient (CLI) | payer OTHER ==
[2020-06-06 11:54] LABS: APPEARANCE, URINE CLEAR (CLEAR); BACTERIA, URINE AUTO NEGATIVE (NEGATIVE); BILIRUBIN, URINE AUTO NEGATIVE (NEGATIVE); BLOOD, URINE BLOOD NEGATIVE (NEGATIVE); COLOR, URINE YELLOW (YELLOW); GLUCOSE, URINE (UA) AUTO NEGATIVE (NEGATIVE); KETONE, URINE AUTO NEGATIVE (NEGATIVE); LEUKOCYTE ESTERASE, URINE AUTO NEGATIVE (NEGATIVE); MUCUS, URINE SMALL (NEGATIVE); NITRITE, URINE AUTO NEGATIVE (NEGATIVE); PROTEIN, URINE AUTO NEGATIVE (NEGATIVE); RBC, URINE AUTO 1 /HPF (0-3); SPECIFIC GRAVITY URINE AUTO 1.014 (1.002-1.035); SQUAMOUS EPITHELIAL CELL UR AU 0 /HPF (0-6); UROBILINOGEN, URINE AUTO 0.2 mg/dL (0.0-2.0); WBC, URINE AUTO 0 /HPF (0-3)
[2020-06-06 11:56] LABS: BASO % 0.5 % (0.0-1.0); EOS # 0.2 10^3/uL (0.0-0.5); EOS % 3.8 % (0.0-3.0); HEMOGLOBIN 11.2 g/dl (12.0-15.5); LYMPH # 1.7 10^3/uL (1.5-5.0); LYMPH % 28.7 % (24.0-44.0); MEAN CORPUSCULAR HEMOGLOBIN 24.3 pg (27.0-33.0); MEAN CORPUSCULAR HGB CONC 30.3 g/dl (32.0-36.5); MEAN CORPUSCULAR VOLUME 80.3 fl (80.0-96.0); MONO # 0.5 10^3/uL (0.0-0.8); MONO % 9.1 % (0.0-5.0); NEUTROPHILS # 3.4 10^3/uL (1.5-8.5); NEUTROPHILS % 57.7 % (36.0-66.0); PLATELET COUNT, AUTOMATED 363 10^3/uL (150-450); RED BLOOD COUNT 4.61 10^6/uL (4.00-5.40); WHITE BLOOD COUNT 5.8 10^3/uL (4.0-10.0)
[2020-06-06 12:24] LABS: HEMOGLOBIN A1c 5.2 %
[2020-06-06 12:27] LABS: ALBUMIN 3.3 GM/DL (3.2-5.2); ALT/SGPT 26 U/L (12-78); BILIRUBIN,TOTAL 0.3 MG/DL (0.2-1.0); BLOOD UREA NITROGEN 10 MG/DL (7-18); CALCIUM LEVEL 8.6 MG/DL (8.5-10.1); CARBON DIOXIDE LEVEL 25 MEQ/L (21-32); CHLORIDE LEVEL 111 MEQ/L (98-107); CHOLESTEROL LEVEL 193 MG/DL (<200); CHOLESTEROL RISK RATIO 2.506 (<5); CREATININE FOR GFR 0.89 MG/DL (0.55-1.30); FERRITIN 4 NG/ML (8-252); FREE T4 0.81 NG/DL (0.76-1.46); GLOMERULAR FILTRATION RATE > 60.0 (>58); GLUCOSE, FASTING 78 MG/DL (70-100); HDL CHOLESTEROL 77 MG/DL (>40); IRON (FE) 27 UG/DL (50-170); LDL CHOLESTEROL 99 MG/DL (<100); NON-HDL-C 116 MG/DL; PERCENT SATURATION 5.9 % (13.2-45.0); POTASSIUM SERUM 4.2 MEQ/L (3.5-5.1); SODIUM LEVEL 140 MEQ/L (136-145); THYROID STIMULATING HORMONE 0.849 uIU/ML (0.358-3.740); TOTAL 25(OH) VITAMIN D 23.5 NG/ML (30.0-100.0); TOTAL IRON BINDING CAPACITY 458 UG/DL (250-450); TRIGLYCERIDES LEVEL 86 MG/DL (<150)
[2020-06-06 12:28] LABS: VITAMIN B12 LEVEL 326 PG/ML (247-911)
[2020-06-06 12:29] LABS: FOLATE 15.5 NG/ML (>5.4)
== END ==
LOC: M LAB 10:07
PROVIDERS: ATTEND Nurse Practitioner Family
DX: F41.9 Anxiety disorder, unspecified (principal); R63.5 Abnormal weight gain; F34.1 Dysthymic disorder; E55.9 Vitamin D deficiency, unspecified; D63.8 Anemia in other chronic diseases classified elsewhere

== ENCOUNTER → 2020-09-22 | Outpatient (CLI) | payer SELFPAY ==
[~2020-09-22] MED LIST changes: -CLIN150C14 PO; +CLIN150C15 PO
== END ==
LOC: M LABSMTC 13:55
PROVIDERS: ATTEND Pediatrics
DX: Z20.822 Contact with and (suspected) exposure to COVID-19 (principal)

== ENCOUNTER → 2020-09-28 | Outpatient (CLI) | payer SELFPAY ==
[~2020-09-28] MED LIST changes: -LISI-538 PO; +LISI20TA33 PO
== END ==
LOC: M LABSMTC 14:35
PROVIDERS: ATTEND Pediatrics
DX: Z20.822 Contact with and (suspected) exposure to COVID-19 (principal)

== ENCOUNTER → 2021-02-27 | Outpatient (REF) | payer BC, OTHER | LOC: M LAB REF 14:04 | PROVIDERS: ATTEND Nurse Practitioner Family | DX: K21.9 Gastro-esophageal reflux disease without esophagitis (principal); E66.01 Morbid (severe) obesity due to excess calories; Z68.41 Body mass index [BMI] 40.0-44.9, adult ==

== ENCOUNTER → 2021-03-16 | Outpatient (CLI) | payer BC, MEDICAID ==
[~2021-03-16] MED LIST changes: -CLIN150C15 PO; +CLIN150C17 PO; -PHEN15CA PO; +PHEN15CA6 PO
[2021-03-16 11:18] LABS: BASO % 0.5 % (0.0-1.0); EOS # 0.1 10^3/uL (0.0-0.5); EOS % 2.3 % (0.0-3.0); HEMATOCRIT 39.8 % (36.0-47.0); HEMOGLOBIN 12.2 g/dl (12.0-15.5); LYMPH # 1.9 10^3/uL (1.5-5.0); LYMPH % 32.4 % (24.0-44.0); MEAN CORPUSCULAR HEMOGLOBIN 25.5 pg (27.0-33.0); MEAN CORPUSCULAR HGB CONC 30.7 g/dl (32.0-36.5); MEAN CORPUSCULAR VOLUME 83.3 fl (80.0-96.0); MONO # 0.5 10^3/uL (0.0-0.8); MONO % 8.7 % (2.0-8.0); NEUTROPHILS # 3.3 10^3/uL (1.5-8.5); NEUTROPHILS % 55.8 % (36.0-66.0); PLATELET COUNT, AUTOMATED 351 10^3/uL (150-450); RED BLOOD COUNT 4.78 10^6/uL (4.00-5.40)
[2021-03-16 11:52] LABS: HEMOGLOBIN A1c 5.2 %
[2021-03-16 12:00] LABS: ALT/SGPT 22 U/L (12-78); BILIRUBIN,TOTAL 0.2 MG/DL (0.2-1.0); BLOOD UREA NITROGEN 10 MG/DL (7-18); CALCIUM LEVEL 8.2 MG/DL (8.5-10.1); CARBON DIOXIDE LEVEL 27 MEQ/L (21-32); CHLORIDE LEVEL 106 MEQ/L (98-107); CREATININE FOR GFR 0.78 MG/DL (0.55-1.30); GLOMERULAR FILTRATION RATE > 60.0 (>58); GLUCOSE, FASTING 75 MG/DL (70-100); POTASSIUM SERUM 4.3 MEQ/L (3.5-5.1); SODIUM LEVEL 138 MEQ/L (136-145); TRIGLYCERIDES LEVEL 160 MG/DL (<150)
[2021-03-16 12:01] LABS: ALBUMIN 3.2 GM/DL (3.2-5.2); CHOLESTEROL LEVEL 209 MG/DL (<200); CHOLESTEROL RISK RATIO 3.215 (<5); FERRITIN 5 NG/ML (8-252); HDL CHOLESTEROL 65 MG/DL (>40); IRON (FE) 41 UG/DL (50-170); LDL CHOLESTEROL 112 MG/DL (<100); MAGNESIUM LEVEL 2.1 MG/DL (1.8-2.4); NON-HDL-C 144 MG/DL; PERCENT SATURATION 8.4 % (13.2-45.0); THYROID STIMULATING HORMONE 0.695 uIU/ML (0.358-3.740); TOTAL IRON BINDING CAPACITY 488 UG/DL (250-450); TOTAL PROTEIN 6.9 GM/DL (6.4-8.2)
[2021-03-16 12:07] LABS: TOTAL 25(OH) VITAMIN D 13.9 NG/ML (30.0-100.0)
[2021-03-16 12:08] LABS: VITAMIN B12 LEVEL 199 PG/ML
== END ==
LOC: M LAB 09:24
PROVIDERS: ATTEND Nurse Practitioner Family
DX: K21.9 Gastro-esophageal reflux disease without esophagitis (principal); E78.5 Hyperlipidemia, unspecified; I10 Essential (primary) hypertension; E66.01 Morbid (severe) obesity due to excess calories

== ENCOUNTER → 2021-03-16 | Outpatient (CLI) | payer BC, MEDICAID | LOC: M RAD 09:22 | PROVIDERS: ATTEND Nurse Practitioner Family | DX: E66.01 Morbid (severe) obesity due to excess calories (principal); Z68.41 Body mass index [BMI] 40.0-44.9, adult; Z98.84 Bariatric surgery status ==

== ENCOUNTER → 2021-06-15 | Outpatient (CLI) | payer BC, MEDICAID, OTHER ==
[~2021-06-15] MED LIST changes: +PHEN15CA PO; -PHEN15CA6 PO
[2021-06-15 12:03] LABS: BASO % 0.3 % (0.0-1.0); EOS # 0.2 10^3/uL (0.0-0.5); EOS % 1.9 % (0.0-3.0); HEMATOCRIT 39.6 % (36.0-47.0); HEMOGLOBIN 12.5 g/dl (12.0-15.5); LYMPH # 2.6 10^3/uL (1.5-5.0); LYMPH % 33.4 % (24.0-44.0); MEAN CORPUSCULAR HEMOGLOBIN 25.6 pg (27.0-33.0); MEAN CORPUSCULAR HGB CONC 31.6 g/dl (32.0-36.5); MONO # 0.6 10^3/uL (0.0-0.8); MONO % 7.8 % (2.0-8.0); NEUTROPHILS # 4.4 10^3/uL (1.5-8.5); NEUTROPHILS % 56.2 % (36.0-66.0); PLATELET COUNT, AUTOMATED 400 10^3/uL (150-450); RED BLOOD COUNT 4.89 10^6/uL (4.00-5.40); WHITE BLOOD COUNT 7.8 10^3/uL (4.0-10.0)
[2021-06-15 12:41] LABS: ERYTHROCYTE SEDIMENTATION RATE 32 mm/hr (0-20)
== END ==
LOC: M LAB 10:45
PROVIDERS: ATTEND Orthopaedic Surgery
DX: S39.012A Strain of muscle, fascia and tendon of lower back, initial encounter (principal); X58.XXXA Exposure to other specified factors, initial encounter; Y92.9 Unspecified place or not applicable; Y93.9 Activity, unspecified; Y99.9 Unspecified external cause status

== ENCOUNTER → 2021-06-27 | Outpatient (CLI) | payer BC, MEDICAID ==
[2021-06-27 10:59] LABS: BASO % 0.3 % (0.0-1.0); EOS # 0.2 10^3/uL (0.0-0.5); HEMATOCRIT 44.4 % (36.0-47.0); HEMOGLOBIN 13.9 g/dl (12.0-15.5); LYMPH # 1.9 10^3/uL (1.5-5.0); LYMPH % 28.5 % (24.0-44.0); MEAN CORPUSCULAR HGB CONC 31.3 g/dl (32.0-36.5); MEAN CORPUSCULAR VOLUME 83.1 fl (80.0-96.0); MONO # 0.6 10^3/uL (0.0-0.8); MONO % 8.5 % (2.0-8.0); NEUTROPHILS % 59.4 % (36.0-66.0); PLATELET COUNT, AUTOMATED 340 10^3/uL (150-450); RED BLOOD COUNT 5.34 10^6/uL (4.00-5.40); WHITE BLOOD COUNT 6.7 10^3/uL (4.0-10.0)
[2021-06-27 11:28] LABS: C REACTIVE PROTEIN QUANTITATIV < 0.30 MG/DL (0.00-0.30)
[2021-06-27 12:05] LABS: ERYTHROCYTE SEDIMENTATION RATE 16 mm/hr (0-20)
[2021-06-27 15:57] LABS: ALBUMIN 3.7 GM/DL (3.2-5.2); ALT/SGPT 53 U/L (12-78); BILIRUBIN,TOTAL 0.3 MG/DL (0.2-1.0); BLOOD UREA NITROGEN 16 MG/DL (7-18); CALCIUM LEVEL 9.4 MG/DL (8.5-10.1); CARBON DIOXIDE LEVEL 29 MEQ/L (21-32); CHLORIDE LEVEL 107 MEQ/L (98-107); CREATININE FOR GFR 0.96 MG/DL (0.55-1.30); GLOMERULAR FILTRATION RATE > 60.0 (>58); GLUCOSE, FASTING 79 MG/DL (70-100); POTASSIUM SERUM 4.4 MEQ/L (3.5-5.1); SODIUM LEVEL 141 MEQ/L (136-145); TOTAL PROTEIN 7.7 GM/DL (6.4-8.2)
== END ==
LOC: M LAB 09:29
PROVIDERS: ATTEND Orthopaedic Surgery
DX: S39.012A Strain of muscle, fascia and tendon of lower back, initial encounter (principal); X58.XXXA Exposure to other specified factors, initial encounter; Y92.9 Unspecified place or not applicable; Y93.9 Activity, unspecified; Y99.9 Unspecified external cause status

== ENCOUNTER → 2021-07-12 | Outpatient (CLI) | payer BC, MEDICAID ==
[~2021-07-12] MED LIST changes: +PROHANCE 279.3MG/ML 15ML VIAL ONE; +PROHANCE 279.3MG/ML 5ML VIAL ONE
--- NOTE | 2021-07-12 14:08 | REPVR ---
PROCEDURE INFORMATION: Exam: MR Lumbar Spine Without and With Contrast Exam date and time: 07/12/2021 9:21 AM Age: 46 years old Clinical indication: Low back pain; Additional info: Spinal stenosis w/o neuro cladication TECHNIQUE: Imaging protocol: Multiplanar magnetic resonance images of the lumbar spine without and with intravenous contrast. Contrast material: PROHANCE; Contrast volume: 20 ml; Contrast route: INTRAVENOUS (IV); COMPARISON: CT Spine, lumbar w/o contrast 02/12/2016 6:09 PM FINDINGS: Vertebrae: There is no fracture or listhesis. There is severe intervertebral disc space loss at L4/5, with endplate changes. Spinal cord: Normal signal. No cord compression. L1-L2: No significant disc disease. There is mild facet hypertrophy. No significant spinal canal stenosis. No neural foraminal stenosis. L2-L3: No significant disc disease. There is mild facet and ligamentous hypertrophy. No significant spinal canal stenosis. No neural foraminal stenosis. L3-L4: There is shallow disc bulging. There is [id number] facet hypertrophy. The spinal canal and neural foramina are patent. L4-L5: There is shallow disc bulging. There is moderate facet hypertrophy. The spinal canal and neural foramina are patent. L5-S1: There is a shallow disc bulge. There is moderate facet hypertrophy. The spinal canal and neural foramina are patent. Soft tissues: Unremarkable. IMPRESSION: Degenerative disc disease and spondylosis. Electronically signed by: Shazia Pritchard On 07/12/2021 14:08:30 PM
== END ==
LOC: M PLAIMG 08:18
PROVIDERS: ATTEND Orthopaedic Surgery
DX: M48.061 Spinal stenosis, lumbar region without neurogenic claudication (principal)
CPT/HCPCS: 72158; A9576

== ENCOUNTER → 2021-08-17 | Outpatient (REF) ==
[~2021-08-17] MED LIST changes: -PROHANCE 279.3MG/ML 15ML VIAL ONE; -PROHANCE 279.3MG/ML 5ML VIAL ONE
== END ==
LOC: M LABSMTC 10:13
PROVIDERS: ATTEND Pediatrics
DX: Z11.52 Encounter for screening for COVID-19 (principal)

== ENCOUNTER → 2021-08-21 | Outpatient (CLI) | payer BC, MEDICAID ==
[~2021-08-21] MED LIST changes: -PHEN15CA PO; +PHEN15CA6 PO
[2021-08-21 12:12] LABS: FREE T4 0.97 NG/DL (0.76-1.46); THYROID STIMULATING HORMONE 0.537 uIU/ML (0.358-3.740); TOTAL 25(OH) VITAMIN D 80.2 NG/ML (30.0-100.0)
== END ==
LOC: M LAB 09:47
PROVIDERS: ATTEND Physician Assistant
DX: E55.9 Vitamin D deficiency, unspecified (principal); E04.1 Nontoxic single thyroid nodule

== ENCOUNTER → 2021-09-11 | Outpatient (REF) ==
[~2021-09-11] MED LIST changes: +PHEN15CA PO; -PHEN15CA6 PO
== END ==
LOC: M LABSMTC 12:49
PROVIDERS: ATTEND Pediatrics
DX: Z20.822 Contact with and (suspected) exposure to COVID-19 (principal)

== ENCOUNTER 2021-09-19 11:19 | Outpatient (CLI) | payer BC, MEDICAID ==
[~2021-09-19] VITALS: Ht 162.6 cm; Wt 108.0 kg
[~2021-09-19 11:19] MED LIST changes: +ALBUTEROL 90 MCG/ACT 8GM HFA INHALER INH PRN; +ALBUTEROL SULFATE 2.5 MG/0.5 ML INH NEB SOLN INH PRN; +EPINEPHrine INJ 1 MG/ML 1ML AMP IM PRN; +NS 1,000 ML IV SCH; -PHEN15CA PO; +PHEN15CA6 PO; +diphenhydrAMINE 50MG/ML VIAL (J1200) IV PRN; +methylPREDNISolone 125MG 2ML VIAL IV PRN
[2021-09-19] MEDS ORDERED: SOTROVIMAB 500 MG in NS 100 ML IV ONE (12:00)
[2021-09-19] MEDS ORDERED: ACETAMINOPHEN TAB 650MG DOSE (2X325MG) PO PRN (12:00)
[2021-09-19 12:09] VITALS: BP 148/91
[2021-09-19 12:39] VITALS: BP 117/76
[2021-09-19 13:39] VITALS: BP 126/76
== END 2021-09-19 13:39 | disposition home or self-care (01) ==
LOC: M OPCLI4PR 11:19
PROVIDERS: ATTEND Physician Assistant
DX: U07.1 COVID-19 (principal); Z88.1 Allergy status to other antibiotic agents; Z88.8 Allergy status to other drugs, medicaments and biological substances

== ENCOUNTER → 2021-10-26 | Outpatient (CLI) | payer BC, MEDICAID ==
[~2021-10-26] MED LIST changes: -ALBUTEROL 90 MCG/ACT 8GM HFA INHALER INH PRN; -ALBUTEROL SULFATE 2.5 MG/0.5 ML INH NEB SOLN INH PRN; -EPINEPHrine INJ 1 MG/ML 1ML AMP IM PRN; -NS 1,000 ML IV SCH; -diphenhydrAMINE 50MG/ML VIAL (J1200) IV PRN; -methylPREDNISolone 125MG 2ML VIAL IV PRN
== END ==
LOC: M WHC 09:28
PROVIDERS: ATTEND Physician Assistant
DX: N63.10 Unspecified lump in the right breast, unspecified quadrant (principal)
CPT/HCPCS: 76642; 77066; G0279

== ENCOUNTER → 2021-12-21 | Outpatient (REF) | payer BC, MEDICAID | LOC: M LAB REF 16:16 | PROVIDERS: ATTEND Physician Assistant | DX: R42 Dizziness and giddiness (principal); R50.9 Fever, unspecified; R05.9 Cough, unspecified ==

== ENCOUNTER → 2022-01-12 | Outpatient (CLI) | payer BC, MEDICAID | LOC: M WHC 12:00 | PROVIDERS: ATTEND Physician Assistant | DX: E04.1 Nontoxic single thyroid nodule (principal) ==

== ENCOUNTER → 2022-06-01 | Outpatient (CLI) | payer BC, MEDICAID ==
[2022-06-01 09:35] LABS: HEMATOCRIT 36.9 % (36.0-47.0); HEMOGLOBIN 11.5 g/dl (12.0-15.5); MEAN CORPUSCULAR HEMOGLOBIN 24.8 pg (27.0-33.0); MEAN CORPUSCULAR HGB CONC 31.2 g/dl (32.0-36.5); MEAN CORPUSCULAR VOLUME 79.5 fl (80.0-96.0); PLATELET COUNT, AUTOMATED 370 10^3/uL (150-450); RED BLOOD COUNT 4.64 10^6/uL (4.00-5.40); WHITE BLOOD COUNT 7.5 10^3/uL (4.0-10.0)
[2022-06-01 10:10] LABS: ALBUMIN 3.4 GM/DL (3.2-5.2); ALT/SGPT 23 U/L (12-78); BILIRUBIN,TOTAL 0.2 MG/DL (0.2-1.0); BLOOD UREA NITROGEN 10 MG/DL (7-18); CARBON DIOXIDE LEVEL 25 MEQ/L (21-32); CHLORIDE LEVEL 109 MEQ/L (98-107); CREATININE FOR GFR 0.74 MG/DL (0.55-1.30); FERRITIN 4 NG/ML (8-252); GLOMERULAR FILTRATION RATE > 60.0 (>58); GLUCOSE, FASTING 78 MG/DL (70-100); IRON (FE) 33 UG/DL (50-170); POTASSIUM SERUM 4.1 MEQ/L (3.5-5.1); SODIUM LEVEL 138 MEQ/L (136-145)
[2022-06-01 11:02] LABS: VITAMIN B12 LEVEL 466 PG/ML (247-911)
== END ==
LOC: M LAB 08:56
DX: K90.9 Intestinal malabsorption, unspecified (principal); Z98.84 Bariatric surgery status

== ENCOUNTER → 2022-06-21 | Outpatient (CLI) | payer BC, MEDICAID ==
[2022-06-21 10:23] LABS: HEMOGLOBIN 11.5 g/dl (12.0-15.5); MEAN CORPUSCULAR HEMOGLOBIN 24.8 pg (27.0-33.0); MEAN CORPUSCULAR HGB CONC 31.1 g/dl (32.0-36.5); MEAN CORPUSCULAR VOLUME 79.9 fl (80.0-96.0); PLATELET COUNT, AUTOMATED 401 10^3/uL (150-450); RED BLOOD COUNT 4.63 10^6/uL (4.00-5.40); WHITE BLOOD COUNT 9.8 10^3/uL (4.0-10.0)
[2022-06-21 11:01] LABS: ALBUMIN 3.2 GM/DL (3.2-5.2); ALT/SGPT 24 U/L (12-78); BILIRUBIN,TOTAL 0.2 MG/DL (0.2-1.0); BLOOD UREA NITROGEN 11 MG/DL (7-18); CALCIUM LEVEL 9.2 MG/DL (8.5-10.1); CARBON DIOXIDE LEVEL 25 MEQ/L (21-32); CHLORIDE LEVEL 110 MEQ/L (98-107); CREATININE FOR GFR 0.88 MG/DL (0.55-1.30); FERRITIN 4 NG/ML (8-252); GLOMERULAR FILTRATION RATE > 60.0 (>58); GLUCOSE, FASTING 98 MG/DL (70-100); IRON (FE) 26 UG/DL (50-170); POTASSIUM SERUM 4.3 MEQ/L (3.5-5.1); SODIUM LEVEL 139 MEQ/L (136-145); TOTAL PROTEIN 7.3 GM/DL (6.4-8.2)
[2022-06-21 13:24] LABS: TOTAL 25(OH) VITAMIN D 28.2 NG/ML (30.0-100.0)
[2022-06-22 14:29] LABS: VITAMIN B12 LEVEL 477 PG/ML (247-911)
== END ==
LOC: M LAB 09:29
DX: K90.9 Intestinal malabsorption, unspecified (principal)

== ENCOUNTER → 2022-10-04 | Outpatient (CLI) | payer BC, MEDICAID | LOC: M PLAIMG 09:18 | PROVIDERS: ATTEND Physician Assistant | DX: J32.9 Chronic sinusitis, unspecified (principal); J34.2 Deviated nasal septum ==

== ENCOUNTER → 2022-12-09 | Outpatient (REF) | payer BC, MEDICAID | LOC: M LAB REF 12:47 | PROVIDERS: ATTEND Physician Assistant Medical | DX: B34.9 Viral infection, unspecified (principal) ==

== ENCOUNTER → 2023-02-05 | Outpatient (CLI) | payer BC, MEDICAID ==
[2023-02-05 10:20] LABS: HEMATOCRIT 37.9 % (36.0-47.0); HEMOGLOBIN 11.8 g/dl (12.0-15.5); MEAN CORPUSCULAR HEMOGLOBIN 24.8 pg (27.0-33.0); MEAN CORPUSCULAR HGB CONC 31.1 g/dl (32.0-36.5); MEAN CORPUSCULAR VOLUME 79.8 fl (80.0-96.0); PLATELET COUNT, AUTOMATED 309 10^3/uL (150-450); RED BLOOD COUNT 4.75 10^6/uL (4.00-5.40); WHITE BLOOD COUNT 6.8 10^3/uL (4.0-10.0)
[2023-02-05 10:48] LABS: IRON (FE) 26 UG/DL (50-170); PERCENT SATURATION 6.7 % (13.2-45.0); TOTAL IRON BINDING CAPACITY 388 UG/DL (250-425)
[2023-02-05 10:49] LABS: ALBUMIN 3.3 G/DL (3.2-5.2); ALKALINE PHOSPHATASE 164 U/L (46-116); ALT/SGPT 27 U/L (7.0-40); AST/SGOT 23 U/L (<34); BILIRUBIN,TOTAL 0.3 MG/DL (0.3-1.2); BLOOD UREA NITROGEN 11 MG/DL (9-23); CALCIUM LEVEL 9.1 MG/DL (8.5-10.1); CARBON DIOXIDE LEVEL 22 MMOL/L (20-31); CHLORIDE LEVEL 108 MMOL/L (98-107); CREATININE FOR GFR 0.89 MG/DL (0.55-1.30); GLOMERULAR FILTRATION RATE > 60.0 (>58); GLUCOSE, FASTING 89 MG/DL (60-100); POTASSIUM SERUM 4.1 MMOL/L (3.5-5.1); SODIUM LEVEL 140 MMOL/L (136-145); TOTAL PROTEIN 6.5 G/DL (5.7-8.2)
[2023-02-05 11:32] LABS: FERRITIN 4.7 NG/ML (7.3-270.7); FOLATE 16.7 NG/ML (>5.4); TOTAL 25(OH) VITAMIN D 37.7 NG/ML (20.0-100.0)
[2023-02-05 11:33] LABS: THYROID STIMULATING HORMONE 2.587 uIU/ML (0.55-4.78)
[2023-02-05 12:06] LABS: VITAMIN B12 LEVEL 452 PG/ML (211-911)
== END ==
LOC: M LAB 09:20
PROVIDERS: ATTEND Physician Assistant
DX: K91.2 Postsurgical malabsorption, not elsewhere classified (principal); Z98.84 Bariatric surgery status

== ENCOUNTER → 2023-03-13 | Outpatient (CLI) | payer BC, MEDICAID | LOC: M PLAIMG 11:01 | PROVIDERS: ATTEND Physician Assistant | DX: M25.512 Pain in left shoulder (principal); M24.812 Other specific joint derangements of left shoulder, not elsewhere classified ==

== ENCOUNTER → 2023-03-25 | Outpatient (CLI) | payer BC, MEDICAID ==
[2023-03-25 16:42] LABS: IONIZED CALCIUM 4.7 MG/DL (4.5-5.3)
[2023-03-25 17:10] LABS: PTH INTACT 96.7 PG/ML (18.5-88.0)
[2023-03-25 17:16] LABS: URIC ACID 3.2 MG/DL (3.1-7.8)
== END ==
LOC: M LAB 14:07
PROVIDERS: ATTEND Pediatrics
DX: R93.6 Abnormal findings on diagnostic imaging of limbs (principal); M89.8X9 Other specified disorders of bone, unspecified site

== ENCOUNTER → 2023-07-17 | Outpatient (CLI) | payer BC, MEDICAID | LOC: M RAD 13:57 | PROVIDERS: ATTEND Physician Assistant | DX: R91.1 Solitary pulmonary nodule (principal) ==

== ENCOUNTER → 2023-08-08 | Outpatient (REF) | payer BC, MEDICAID | LOC: M LAB REF 16:21 | PROVIDERS: ATTEND Nurse Practitioner Family | DX: N20.0 Calculus of kidney (principal) ==

== ENCOUNTER 2023-08-20 11:25 | Emergency (ER) | payer BC, MEDICAID ==
[~2023-08-20] VITALS: Ht 162.6 cm; Wt 134.3 kg
[2023-08-20] MEDS ORDERED: LORazepam 1 MG TAB PO STA (12:10)
[2023-08-20] MEDS ORDERED: ASPIRIN 81MG CHEW TABLET PO ONE (12:10)
[2023-08-20 12:21] LABS: BASO % 0.5 % (0.0-1.0); EOS # 0.1 10^3/uL (0.0-0.5); EOS % 1.7 % (0.0-3.0); HEMATOCRIT 40.1 % (36.0-47.0); HEMOGLOBIN 12.4 g/dl (12.0-15.5); LYMPH # 1.7 10^3/uL (1.5-5.0); LYMPH % 21.6 % (24.0-44.0); MEAN CORPUSCULAR HEMOGLOBIN 26.4 pg (27.0-33.0); MEAN CORPUSCULAR HGB CONC 30.9 g/dl (32.0-36.5); MEAN CORPUSCULAR VOLUME 85.3 fl (80.0-96.0); MONO # 0.6 10^3/uL (0.0-0.8); MONO % 8.2 % (2.0-8.0); NEUTROPHILS # 5.2 10^3/uL (1.5-8.5); NEUTROPHILS % 67.7 % (36.0-66.0); PLATELET COUNT, AUTOMATED 326 10^3/uL (150-450); WHITE BLOOD COUNT 7.7 10^3/uL (4.0-10.0)
[2023-08-20 12:41] LABS: CK-MB VALUE MASS < 1.0 NG/ML (<3.6); LIPASE 31 U/L (12-53)
[2023-08-20 12:43] LABS: ALBUMIN 3.3 G/DL (3.2-5.2); ALKALINE PHOSPHATASE 165 U/L (46-116); ALT/SGPT 49 U/L (7.0-40); AST/SGOT 35 U/L (<34); BILIRUBIN,DIRECT 0.1 MG/DL (<0.4); BILIRUBIN,TOTAL 0.4 MG/DL (0.3-1.2); BLOOD UREA NITROGEN 7 MG/DL (9-23); CALCIUM LEVEL 9.1 MG/DL (8.5-10.1); CARBON DIOXIDE LEVEL 22 MMOL/L (20-31); CHLORIDE LEVEL 110 MMOL/L (98-107); CPK CREATINE PHOSPHOKINASE 134 U/L (34-145); CREATININE FOR GFR 0.65 MG/DL (0.55-1.30); GLOMERULAR FILTRATION RATE > 60.0 (>58); GLUCOSE, FASTING 88 MG/DL (60-100); MB/CK RELATIVE INDEX 0.74 (< OR =4); POTASSIUM SERUM 4.1 MMOL/L (3.5-5.1); SODIUM LEVEL 141 MMOL/L (136-145); TOTAL PROTEIN 6.7 G/DL (5.7-8.2)
[2023-08-20 12:44] LABS: THYROID STIMULATING HORMONE 0.587 uIU/ML (0.55-4.78)
[2023-08-20 12:45] LABS: FREE T4 0.95 NG/DL (0.89-1.76)
[2023-08-20 13:07] LABS: RSV AMPLIFICATION NEGATIVE (NEGATIVE)
[2023-08-20] MEDS ORDERED: MORPHINE 2 MG/ML 1ML VIAL IV ONE (13:25)
[2023-08-20 14:10] LABS: CK-MB VALUE MASS < 1.0 NG/ML (<3.6)
[2023-08-20 14:18] LABS: CPK CREATINE PHOSPHOKINASE 135 U/L (34-145); MB/CK RELATIVE INDEX 0.74 (< OR =4)
[2023-08-20] MEDS ORDERED: PERCOCET 5MG/325MG TAB PO ONE (14:20)
[2023-08-20 15:25] LABS: CK-MB VALUE MASS < 1.0 NG/ML (<3.6)
[2023-08-20 15:29] LABS: CPK CREATINE PHOSPHOKINASE 138 U/L (34-145); MB/CK RELATIVE INDEX 0.72 (< OR =4)
[2023-08-20 16:16] VITALS: BP 122/66; TEMP 97.4; O2SAT 99
== END 2023-08-20 17:30 | disposition home or self-care (01) ==
LOC: M ED 11:25
DX: R07.9 Chest pain, unspecified (principal); M54.50 Low back pain, unspecified; I10 Essential (primary) hypertension; J45.909 Unspecified asthma, uncomplicated; F41.9 Anxiety disorder, unspecified; F31.9 Bipolar disorder, unspecified; F90.9 Attention-deficit hyperactivity disorder, unspecified type; Z79.52 Long term (current) use of systemic steroids; Z79.82 Long term (current) use of aspirin; Z79.810 Long term (current) use of selective estrogen receptor modulators (SERMs); Z79.899 Other long term (current) drug therapy; Z88.5 Allergy status to narcotic agent; Z88.8 Allergy status to other drugs, medicaments and biological substances

== ENCOUNTER → 2023-08-27 | Outpatient (CLI) | payer BC, MEDICAID ==
[2023-08-27 12:26] LABS: FOLATE 18.8 NG/ML (>5.4); THYROID STIMULATING HORMONE 0.538 uIU/ML (0.55-4.78); TOTAL 25(OH) VITAMIN D 32.8 NG/ML (20.0-100.0)
== END ==
LOC: M LAB 08:56
PROVIDERS: ATTEND Physician Assistant
DX: E02 Subclinical iodine-deficiency hypothyroidism (principal); E55.9 Vitamin D deficiency, unspecified; K91.2 Postsurgical malabsorption, not elsewhere classified; Z98.84 Bariatric surgery status

== ENCOUNTER → 2023-08-27 | Outpatient (CLI) | payer BC, MEDICAID ==
[2023-08-27 11:55] LABS: BASO % 0.3 % (0.0-1.0); EOS # 0.1 10^3/uL (0.0-0.5); EOS % 1.6 % (0.0-3.0); HEMATOCRIT 40.2 % (36.0-47.0); HEMOGLOBIN 12.5 g/dl (12.0-15.5); LYMPH # 2.3 10^3/uL (1.5-5.0); LYMPH % 26.6 % (24.0-44.0); MEAN CORPUSCULAR HEMOGLOBIN 26.6 pg (27.0-33.0); MEAN CORPUSCULAR HGB CONC 31.1 g/dl (32.0-36.5); MEAN CORPUSCULAR VOLUME 85.5 fl (80.0-96.0); MONO # 0.7 10^3/uL (0.0-0.8); MONO % 7.9 % (2.0-8.0); NEUTROPHILS # 5.5 10^3/uL (1.5-8.5); NEUTROPHILS % 63.4 % (36.0-66.0); PLATELET COUNT, AUTOMATED 340 10^3/uL (150-450); WHITE BLOOD COUNT 8.7 10^3/uL (4.0-10.0)
[2023-08-27 12:50] LABS: CHOLESTEROL LEVEL 180 MG/DL (<200); CHOLESTEROL RISK RATIO 2.85 (<5); HDL CHOLESTEROL 63.1 MG/DL (>40); LDL CHOLESTEROL 92.3 MG/DL (<100); NON-HDL-C 116.9 MG/DL; TRIGLYCERIDES LEVEL 123 MG/DL (<150)
[2023-08-27 12:53] LABS: FREE T4 0.87 NG/DL (0.89-1.76); THYROID STIMULATING HORMONE 0.527 uIU/ML (0.55-4.78)
[2023-08-27 12:55] LABS: THYROGLOBULIN ANTIBODY < 15.0 U/ML (<60.0); THYROID PEROXIDASE ANTIBODY 32 U/ML (<60.0)
== END ==
LOC: M RAD 08:53
PROVIDERS: ATTEND Nurse Practitioner Family
DX: E04.1 Nontoxic single thyroid nodule (principal); I10 Essential (primary) hypertension; D50.9 Iron deficiency anemia, unspecified

== ENCOUNTER → 2023-10-01 | Outpatient (REF) | payer BC, MEDICAID | LOC: M LAB REF 11:19 | PROVIDERS: ATTEND Physician Assistant | DX: R19.7 Diarrhea, unspecified (principal) ==

== ENCOUNTER → 2023-10-03 | Outpatient (CLI) | payer BC, MEDICAID ==
[~2023-10-03] MED LIST changes: +SUCR1SS PO
[2023-10-03 09:18] LABS: ALBUMIN 3.2 G/DL (3.2-5.2); ALKALINE PHOSPHATASE 157 U/L (46-116); ALT/SGPT 30 U/L (7.0-40); AST/SGOT 22 U/L (<34); BILIRUBIN,TOTAL 0.3 MG/DL (0.3-1.2); BLOOD UREA NITROGEN 11 MG/DL (9-23); CALCIUM LEVEL 8.1 MG/DL (8.5-10.1); CARBON DIOXIDE LEVEL 26 MMOL/L (20-31); CHLORIDE LEVEL 113 MMOL/L (98-107); CHOLESTEROL LEVEL 146 MG/DL (<200); CREATININE FOR GFR 0.83 MG/DL (0.55-1.30); GLOMERULAR FILTRATION RATE > 60.0 (>58); GLUCOSE, FASTING 85 MG/DL (60-100); LDL CHOLESTEROL 73.8 MG/DL (<100); POTASSIUM SERUM 4.3 MMOL/L (3.5-5.1); SODIUM LEVEL 144 MMOL/L (136-145); TOTAL PROTEIN 6.4 G/DL (5.7-8.2); TRIGLYCERIDES LEVEL 101 MG/DL (<150)
[2023-10-03 09:19] LABS: PTH INTACT 103.8 PG/ML (18.5-88.0)
== END ==
LOC: M LAB 07:54
PROVIDERS: ATTEND Nurse Practitioner Family
DX: R74.8 Abnormal levels of other serum enzymes (principal)

== ENCOUNTER → 2023-10-03 | Outpatient (CLI) | payer BC, MEDICAID | LOC: M RAD 07:50 | PROVIDERS: ATTEND Physician Assistant | DX: R10.10 Upper abdominal pain, unspecified (principal) | CPT/HCPCS: 78227; A9537 ==

== ENCOUNTER 2023-10-04 15:45 | Emergency (ER) | payer BC, MEDICAID ==
[~2023-10-04] VITALS: Ht 162.6 cm; Wt 121.4 kg
[~2023-10-04 15:45] MED LIST changes: -SUCR1SS PO
[2023-10-04 17:15] LABS: BASO % 0.3 % (0.0-1.0); EOS # 0.2 10^3/uL (0.0-0.5); EOS % 2.4 % (0.0-3.0); HEMATOCRIT 41.1 % (36.0-47.0); HEMOGLOBIN 12.8 g/dl (12.0-15.5); LYMPH # 2.2 10^3/uL (1.5-5.0); LYMPH % 35.4 % (24.0-44.0); MEAN CORPUSCULAR HEMOGLOBIN 26.1 pg (27.0-33.0); MEAN CORPUSCULAR HGB CONC 31.1 g/dl (32.0-36.5); MEAN CORPUSCULAR VOLUME 83.7 fl (80.0-96.0); MONO # 0.5 10^3/uL (0.0-0.8); MONO % 8.4 % (2.0-8.0); NEUTROPHILS # 3.3 10^3/uL (1.5-8.5); NEUTROPHILS % 53.3 % (36.0-66.0); PLATELET COUNT, AUTOMATED 336 10^3/uL (150-450); RED BLOOD COUNT 4.91 10^6/uL (4.00-5.40); WHITE BLOOD COUNT 6.2 10^3/uL (4.0-10.0)
[2023-10-04 17:43] LABS: CK-MB VALUE MASS < 1.0 NG/ML (<3.6); LIPASE 28 U/L (12-53)
[2023-10-04 17:45] LABS: CPK CREATINE PHOSPHOKINASE 113 U/L (34-145); MB/CK RELATIVE INDEX 0.88 (< OR =4)
[2023-10-04 17:54] LABS: ALBUMIN 3.5 G/DL (3.2-5.2); ALKALINE PHOSPHATASE 164 U/L (46-116); ALT/SGPT 36 U/L (7.0-40); AST/SGOT 25 U/L (<34); BILIRUBIN,DIRECT < 0.1 MG/DL (<0.4); BILIRUBIN,TOTAL 0.3 MG/DL (0.3-1.2); BLOOD UREA NITROGEN 11 MG/DL (9-23); CALCIUM LEVEL 8.8 MG/DL (8.5-10.1); CARBON DIOXIDE LEVEL 25 MMOL/L (20-31); CHLORIDE LEVEL 112 MMOL/L (98-107); GLOMERULAR FILTRATION RATE > 60.0 (>58); GLUCOSE, FASTING 92 MG/DL (60-100); POTASSIUM SERUM 4.4 MMOL/L (3.5-5.1); SODIUM LEVEL 142 MMOL/L (136-145); TOTAL PROTEIN 6.8 G/DL (5.7-8.2)
[2023-10-04] MEDS ORDERED: PANTOPRAZOLE 40MG VIAL IV ONE (20:25)
[2023-10-04] MEDS ORDERED: MORPHINE 4 MG/ML 1ML VIAL IV ONE ×2 (20:25→22:45)
[2023-10-04] MEDS ORDERED: NS 1,000 ML IV ONE (20:25)
[2023-10-04] MEDS ORDERED: ONDANSETRON 4MG 2ML VIAL IV ONE (20:25)
[2023-10-04] MEDS ORDERED: ISOVUE-370 76% 100ML VIAL As Ordered ONE (21:10)
[2023-10-04] MEDS: GASTROGRAFIN SOLUTION 30ML PO SCH (21:19)
[2023-10-04 21:24] LABS: INR 1.08; PROTHROMBIN TIME 13.7 SECONDS (12.5-14.5)
[2023-10-04 21:35] LABS: RSV AMPLIFICATION NEGATIVE (NEGATIVE)
[2023-10-05] MEDS ORDERED: SUCR1SS PO
[2023-10-05 00:09] VITALS: BP 135/85; TEMP 98.4; O2SAT 98
== END 2023-10-05 00:15 | disposition home or self-care (01) ==
LOC: M ED 15:45
DX: R10.13 Epigastric pain (principal); I10 Essential (primary) hypertension; J45.909 Unspecified asthma, uncomplicated; K21.9 Gastro-esophageal reflux disease without esophagitis; H81.4 Vertigo of central origin; F31.9 Bipolar disorder, unspecified; Z88.5 Allergy status to narcotic agent; Z88.8 Allergy status to other drugs, medicaments and biological substances; Z79.52 Long term (current) use of systemic steroids; Z79.82 Long term (current) use of aspirin; Z79.810 Long term (current) use of selective estrogen receptor modulators (SERMs); Z79.899 Other long term (current) drug therapy
CPT/HCPCS: 74177; 80048; 80076; 82550; 82553; 83690; 84484; 85025; 85610; 87631; 93005; 96361; 96374; 96375; 96376; 99284; C9113; J2405; Q9963; Q9967

== ENCOUNTER → 2023-11-18 | Outpatient (REF) | payer BC, MEDICAID ==
[~2023-11-18] MED LIST changes: +SUCR1SS PO
[2023-11-18 13:37] LABS: APPEARANCE, URINE HAZY (CLEAR); BACTERIA, URINE AUTO NEGATIVE (NEGATIVE); BILIRUBIN, URINE AUTO NEGATIVE (NEGATIVE); BLOOD, URINE BLOOD NEGATIVE (NEGATIVE); CALCIUM OXALATE CRYSTALS MODERATE; COLOR, URINE YELLOW (YELLOW); GLUCOSE, URINE (UA) AUTO NEGATIVE (NEGATIVE); KETONE, URINE AUTO NEGATIVE (NEGATIVE); LEUKOCYTE ESTERASE, URINE AUTO NEGATIVE (NEGATIVE); MUCUS, URINE SMALL (NEGATIVE); NITRITE, URINE AUTO NEGATIVE (NEGATIVE); PROTEIN, URINE AUTO NEGATIVE (NEGATIVE); RBC, URINE AUTO 0 /HPF (0-3); SPECIFIC GRAVITY URINE AUTO 1.021 (1.002-1.035); SQUAMOUS EPITHELIAL CELL UR AU 3 /HPF (0-6); UROBILINOGEN, URINE AUTO 0.2 mg/dL (0.0-2.0); WBC, URINE AUTO 0 /HPF (0-3)
== END ==
LOC: M SMT 13:03
PROVIDERS: ATTEND Physician Assistant
DX: N20.0 Calculus of kidney (principal)

== ENCOUNTER → 2023-11-26 | Outpatient (CLI) | payer BC ==
[2023-11-26 12:01] LABS: FERRITIN 5.2 NG/ML (7.3-270.7); FREE T4 0.98 NG/DL (0.89-1.76); THYROID STIMULATING HORMONE 2.019 uIU/ML (0.55-4.78)
== END ==
LOC: M LAB 09:10
PROVIDERS: ATTEND Nurse Practitioner Family
DX: R10.13 Epigastric pain (principal)

== ENCOUNTER → 2023-12-23 | Outpatient (CLI) | payer BC, MEDICAID, SELFPAY | LOC: M RAD 09:11 | PROVIDERS: ATTEND Physician Assistant | DX: R10.10 Upper abdominal pain, unspecified (principal) ==

== ENCOUNTER → 2024-02-10 | Outpatient (CLI) | payer OTHER ==
[~2024-02-10] MED LIST changes: +BUPR-597 PO; -BUPR300T92 PO
[2024-02-10 17:40] LABS: BASO % 0.4 % (0.0-1.0); EOS # 0.1 10^3/uL (0.0-0.5); EOS % 0.7 % (0.0-3.0); HEMATOCRIT 36.4 % (36.0-47.0); HEMOGLOBIN 11.5 g/dl (12.0-15.5); LYMPH # 2.4 10^3/uL (1.5-5.0); LYMPH % 31.8 % (24.0-44.0); MEAN CORPUSCULAR HEMOGLOBIN 25.4 pg (27.0-33.0); MEAN CORPUSCULAR HGB CONC 31.6 g/dl (32.0-36.5); MEAN CORPUSCULAR VOLUME 80.5 fl (80.0-96.0); MONO # 0.7 10^3/uL (0.0-0.8); MONO % 9.3 % (2.0-8.0); NEUTROPHILS # 4.3 10^3/uL (1.5-8.5); NEUTROPHILS % 57.5 % (36.0-66.0); PLATELET COUNT, AUTOMATED 372 10^3/uL (150-450); RED BLOOD COUNT 4.52 10^6/uL (4.00-5.40); WHITE BLOOD COUNT 7.5 10^3/uL (4.0-10.0)
[2024-02-10 17:52] LABS: HEMOGLOBIN A1c 5.1 % (4.0-6.0)
[2024-02-10 18:09] LABS: CORTISOL PM 4.7 UG/DL (3.1-16.7)
[2024-02-10 18:13] LABS: ALBUMIN 3.4 G/DL (3.2-5.2); ALKALINE PHOSPHATASE 153 U/L (46-116); ALT/SGPT 27 U/L (7.0-40); AST/SGOT 15 U/L (<34); BILIRUBIN,TOTAL 0.3 MG/DL (0.3-1.2); BLOOD UREA NITROGEN 12 MG/DL (9-23); CALCIUM LEVEL 9.2 MG/DL (8.5-10.1); CARBON DIOXIDE LEVEL 24 MMOL/L (20-31); CHLORIDE LEVEL 111 MMOL/L (98-107); CREATININE FOR GFR 0.65 MG/DL (0.55-1.30); FOLLICLE STIMULATING HORMONE 14.1 mIU/ML; GLOMERULAR FILTRATION RATE > 60.0 (>58); GLUCOSE, FASTING 87 MG/DL (60-100); IRON (FE) 19 UG/DL (50-170); PERCENT SATURATION 4.3 % (13.2-45.0); POTASSIUM SERUM 4.3 MMOL/L (3.5-5.1); SODIUM LEVEL 141 MMOL/L (136-145); THYROID STIMULATING HORMONE 1.261 uIU/ML (0.55-4.78); TOTAL IRON BINDING CAPACITY 443 UG/DL (250-425); TOTAL PROTEIN 6.7 G/DL (5.7-8.2)
[2024-02-10 18:14] LABS: FERRITIN 3.9 NG/ML (7.3-270.7); FREE T4 0.78 NG/DL (0.89-1.76)
[2024-02-10 18:15] LABS: ESTRADIOL 132.2 PG/ML; PROLACTIN 11.64 NG/ML
[2024-02-10 18:16] LABS: PROGESTERONE < 0.21 NG/ML
[2024-02-12 14:09] LABS: TESTOSTERONE FREE (DIRECT) 0.5 pg/mL (0.0-4.2)
== END ==
LOC: M PLALAB 15:18
PROVIDERS: ATTEND Nurse Practitioner Family
DX: R53.83 Other fatigue (principal); N94.10 Unspecified dyspareunia; N73.9 Female pelvic inflammatory disease, unspecified

== ENCOUNTER 2024-02-23 14:23 | Observation (INO) | payer OTHER ==
[~2024-02-23] VITALS: Ht 165.1 cm; Wt 133.4 kg
[2024-02-23 15:33] LABS: BASO % 0.2 % (0.0-1.0); EOS # 0.1 10^3/uL (0.0-0.5); EOS % 0.7 % (0.0-3.0); HEMATOCRIT 39.5 % (36.0-47.0); HEMOGLOBIN 12.3 g/dl (12.0-15.5); LYMPH # 1.7 10^3/uL (1.5-5.0); LYMPH % 19.2 % (24.0-44.0); MEAN CORPUSCULAR HEMOGLOBIN 24.9 pg (27.0-33.0); MEAN CORPUSCULAR HGB CONC 31.1 g/dl (32.0-36.5); MEAN CORPUSCULAR VOLUME 80.1 fl (80.0-96.0); MONO # 0.5 10^3/uL (0.0-0.8); MONO % 5.3 % (2.0-8.0); NEUTROPHILS # 6.6 10^3/uL (1.5-8.5); NEUTROPHILS % 74.4 % (36.0-66.0); PLATELET COUNT, AUTOMATED 368 10^3/uL (150-450); RED BLOOD COUNT 4.93 10^6/uL (4.00-5.40); WHITE BLOOD COUNT 8.9 10^3/uL (4.0-10.0)
[2024-02-23] MEDS: MORPHINE 4 MG/ML 1ML VIAL IV ONE ×2 (15:56→19:03)
[2024-02-23 16:00] LABS: ALBUMIN 3.8 G/DL (3.2-5.2); ALKALINE PHOSPHATASE 168 U/L (46-116); ALT/SGPT 48 U/L (7.0-40); AST/SGOT 26 U/L (<34); BILIRUBIN,DIRECT 0.1 MG/DL (<0.4); BILIRUBIN,TOTAL 0.4 MG/DL (0.3-1.2); BLOOD UREA NITROGEN 11 MG/DL (9-23); CALCIUM LEVEL 9.6 MG/DL (8.5-10.1); CARBON DIOXIDE LEVEL 24 MMOL/L (20-31); CHLORIDE LEVEL 106 MMOL/L (98-107); CK-MB VALUE MASS < 1.0 NG/ML (<3.6); CPK CREATINE PHOSPHOKINASE 87 U/L (34-145); CREATININE FOR GFR 0.72 MG/DL (0.55-1.30); GLOMERULAR FILTRATION RATE > 60.0 (>58); GLUCOSE, FASTING 104 MG/DL (60-100); MB/CK RELATIVE INDEX 1.14 (< OR =4); POTASSIUM SERUM 4.6 MMOL/L (3.5-5.1); SODIUM LEVEL 137 MMOL/L (136-145)
[2024-02-23 16:10] LABS: C REACTIVE PROTEIN QUANTITATIV < 0.40 MG/DL (<1.0); LIPASE 38 U/L (12-53)
[2024-02-23] MEDS ORDERED: ISOVUE-370 76% 100ML VIAL As Ordered ONE (16:12)
[2024-02-23] MEDS: LORazepam 1 MG TAB PO ONE ×2 (16:47→23:59)
[2024-02-23 17:03] LABS: CK-MB VALUE MASS < 1.0 NG/ML (<3.6)
[2024-02-23 17:04] LABS: CPK CREATINE PHOSPHOKINASE 87 U/L (34-145); MB/CK RELATIVE INDEX 1.14 (< OR =4)
[2024-02-23] MEDS: KETOROLAC 30 MG/ML 1ML VIAL IV ONE (18:05)
[2024-02-23] MEDS: PANTOPRAZOLE 40MG VIAL IV ONE (19:03)
[2024-02-23] MEDS: NS 1,000 ML IV ONE (19:04)
[2024-02-23] MEDS: MAALOX 30 ML SUSP *UDC PO ONE (19:33)
[2024-02-23 19:42] LABS: LIPASE 36 U/L (12-53)
[2024-02-23 19:51] LABS: ALBUMIN 3.5 G/DL (3.2-5.2); ALKALINE PHOSPHATASE 153 U/L (46-116); ALT/SGPT 43 U/L (7.0-40); AST/SGOT 22 U/L (<34); BILIRUBIN,TOTAL 0.4 MG/DL (0.3-1.2); BLOOD UREA NITROGEN 10 MG/DL (9-23); CALCIUM LEVEL 8.9 MG/DL (8.5-10.1); CARBON DIOXIDE LEVEL 27 MMOL/L (20-31); CHLORIDE LEVEL 108 MMOL/L (98-107); CREATININE FOR GFR 0.71 MG/DL (0.55-1.30); GLOMERULAR FILTRATION RATE > 60.0 (>58); GLUCOSE, FASTING 90 MG/DL (60-100); POTASSIUM SERUM 4.6 MMOL/L (3.5-5.1); SODIUM LEVEL 139 MMOL/L (136-145); TOTAL PROTEIN 6.5 G/DL (5.7-8.2)
[2024-02-23] MEDS: GASTROGRAFIN SOLUTION 30ML PO SCH (20:35)
[2024-02-23] MEDS: FAMOTIDINE IV BAG 20 MG in IV 1 EA IV ONE (20:36)
[2024-02-23] MEDS: SUCRALFATE 1 GM TAB PO ONE (20:36)
[2024-02-23] MEDS: HYDROMORPHONE HCL 0.5 MG/ 0.5 ML SYRINGE IV PRN (20:36)
[2024-02-24] MEDS ORDERED: LORA1TAB23 PO (00:57)
[2024-02-24] MEDS ORDERED: ESTR0.1C5 PV (00:57)
[2024-02-24] MEDS ORDERED: ONDA-282 SL (00:57)
[2024-02-24] MEDS ORDERED: ALBU8.5H INH (00:57)
[2024-02-24] MEDS ORDERED: TRAM100T21 PO (00:57)
[2024-02-24] MEDS ORDERED: TOPI100T9 PO (00:57)
[2024-02-24] MEDS ORDERED: PANT40TA29 PO (01:05)
[2024-02-24] MEDS ORDERED: CYCL-707 PO (01:05)
[2024-02-24] MEDS ORDERED: CETI-24 PO (01:05)
[2024-02-24] MEDS ORDERED: SUCR1TAB56 PO (01:05)
[2024-02-24] MEDS ORDERED: ALBU2.5V10 INH (01:05)
[2024-02-24] MEDS ORDERED: BUPR-69 PO (01:05)
[2024-02-24] MEDS ORDERED: OXYC7.5T3 PO (01:05)
[2024-02-24] MEDS ORDERED: HOME MED LIST COMPLETE! XX SCH (01:10)
[2024-02-24] MEDS: PERCOCET 5MG/325MG TAB PO ONE (01:22)
[2024-02-24] MEDS ORDERED: ACETAMINOPHEN TAB 650MG DOSE (2X325MG) PO PRN (02:15)
[2024-02-24] MEDS ORDERED: MAALOX 30 ML SUSP *UDC PO PRN (02:15)
[2024-02-24] MEDS ORDERED: IRON SUCROSE 100MG 5ML VIAL IV ONE (02:20)
[2024-02-24] MEDS ORDERED: ALBUTEROL 90 MCG/ACT 8GM HFA INHALER INH PRN (02:30)
[2024-02-24] MEDS ORDERED: ALBUTEROL SULFATE 2.5MG/0.5ML INH NEB SOLN INH PRN (02:30)
[2024-02-24 02:38] LABS: IRON (FE) 19 UG/DL (50-170); PERCENT SATURATION 4.3 % (13.2-45.0); TOTAL IRON BINDING CAPACITY 439 UG/DL (250-425)
[2024-02-24 02:41] LABS: FERRITIN 3.3 NG/ML (7.3-270.7)
[2024-02-24 03:53] VITALS: BP 123/61; TEMP 97.2; O2SAT 99
[2024-02-24] MEDS: LORazepam 1 MG TAB PO PRN (04:18)
[2024-02-24] MEDS: TOPIRAMATE (TopAMAX) 100 MG TAB PO SCH (04:18)
[2024-02-24] MEDS ORDERED: HYDROMORPHONE HCL 0.5 MG/ 0.5 ML SYRINGE IV PRN (04:20)
[2024-02-24] MEDS: AMITRIPTYLINE 10MG TABLET PO SCH (04:36)
[2024-02-24] MEDS: HYDROMORPHONE HCL 0.5 MG/ 0.5 ML SYRINGE IV PRN (04:37)
[2024-02-24] MEDS: IRON SUCROSE 300 MG in NS 250 ML OVER 90 MIN. IV ONE (04:37)
[2024-02-24] MEDS ORDERED: PERCOCET 5MG/325MG TAB PO PRN (06:50)
[2024-02-24] MEDS ORDERED: CYCLOBENZAPRINE 10MG TABLET PO PRN (06:50)
[2024-02-24 07:30] LABS: HEMATOCRIT 34.5 % (36.0-47.0); HEMOGLOBIN 10.9 g/dl (12.0-15.5); MEAN CORPUSCULAR HEMOGLOBIN 25.5 pg (27.0-33.0); MEAN CORPUSCULAR HGB CONC 31.6 g/dl (32.0-36.5); MEAN CORPUSCULAR VOLUME 80.8 fl (80.0-96.0); PLATELET COUNT, AUTOMATED 287 10^3/uL (150-450); RED BLOOD COUNT 4.27 10^6/uL (4.00-5.40); WHITE BLOOD COUNT 6.5 10^3/uL (4.0-10.0)
[2024-02-24 08:00] VITALS: BP 122/61; TEMP 97.3; O2SAT 98
[2024-02-24] MEDS ORDERED: PANTOPRAZOLE 40MG VIAL IV SCH (08:00)
[2024-02-24 08:03] LABS: ALBUMIN 3.1 G/DL (3.2-5.2); ALKALINE PHOSPHATASE 147 U/L (46-116); ALT/SGPT 37 U/L (7.0-40); AST/SGOT 21 U/L (<34); BILIRUBIN,TOTAL 0.5 MG/DL (0.3-1.2); BLOOD UREA NITROGEN 10 MG/DL (9-23); CALCIUM LEVEL 8.7 MG/DL (8.5-10.1); CARBON DIOXIDE LEVEL 26 MMOL/L (20-31); CHLORIDE LEVEL 111 MMOL/L (98-107); GLOMERULAR FILTRATION RATE > 60.0 (>58); GLUCOSE, FASTING 86 MG/DL (60-100); POTASSIUM SERUM 4.1 MMOL/L (3.5-5.1); SODIUM LEVEL 142 MMOL/L (136-145); TOTAL PROTEIN 6.1 G/DL (5.7-8.2)
[2024-02-24] MEDS: buPROPion 100 MG TAB PO SCH (08:41)
[2024-02-24] MEDS: CETIRIZINE (ZyrTEC) 10 MG TAB PO SCH (08:41)
[2024-02-24] MEDS: PANTOPRAZOLE 40MG TAB (PROTONIX) PO SCH (08:41)
[2024-02-24] MEDS: SUCRALFATE 1 GM TAB PO SCH (08:41)
[2024-02-24] MEDS: ENOXAPARIN 40MG/0.4ML SYRINGE (J1650 PER 10MG) SC SCH (08:42)
[2024-02-24] MEDS: PERCOCET 5MG/325MG TAB PO PRN (08:43)
== END 2024-02-24 12:35 | disposition home or self-care (01) ==
LOC: M ED 14:23 → M ED INP 14:24 → M MS5PR 02-24 04:03
PROVIDERS: ADMIT Preventive Medicine Undersea and Hyperbaric Medicine; ATTEND Internal Medicine
DX: R10.13 Epigastric pain (principal); I10 Essential (primary) hypertension; D50.9 Iron deficiency anemia, unspecified; E66.01 Morbid (severe) obesity due to excess calories; Z98.84 Bariatric surgery status; K21.9 Gastro-esophageal reflux disease without esophagitis; J45.909 Unspecified asthma, uncomplicated; Z79.899 Other long term (current) drug therapy; Z88.8 Allergy status to other drugs, medicaments and biological substances; F41.9 Anxiety disorder, unspecified; F32.A Depression, unspecified
CPT/HCPCS: 36415; 71045; 74176; 74178; 80048; 80053; 80076; 81001; 82550; 82553; 82728; 83550; 83605; 83690; 84484; 85025; 85027; 86140; 87040; 93005; 93041; 94760; 96365; 96366; 96372; 96375; 96376; 99285; C9113; J1170; J1650; J1756; J1885; Q9963; Q9967; S0028

== ENCOUNTER 2024-03-05 11:47 | Outpatient (CLI) | payer OTHER ==
[~2024-03-05] VITALS: Ht 162.6 cm; Wt 136.3 kg
[~2024-03-05 11:47] MED LIST changes: +ALBU2.5V10 INH; +ALBU8.5H INH; +ALBUTEROL SULFATE 2.5MG/0.5ML INH NEB SOLN INH PRN; +BUPR-69 PO; +CETI-24 PO; +EPINEPHrine INJ 1 MG/ML 1ML AMP IM PRN; +ESTR0.1C5 PV; +LORA1TAB23 PO; +NS 1,000 ML IV SCH; +ONDA-282 SL; +OXYC7.5T3 PO; +PANT40TA29 PO; +SUCR1TAB56 PO; +TOPI100T9 PO; +TRAM100T21 PO; +diphenhydrAMINE 50MG/ML VIAL IV PRN; +methylPREDNISolone 125MG 2ML VIAL IV PRN
[2024-03-05 12:00] VITALS: BP 133/85; O2SAT 98
[2024-03-05] MEDS: IRON SUCROSE 200 MG in NS 100 ML IV ONE (12:18)
[2024-03-05 13:15] VITALS: BP 142/83; O2SAT 97
== END 2024-03-05 13:20 | disposition home or self-care (01) ==
LOC: M INFU 11:47
PROVIDERS: ATTEND Nurse Practitioner Family
DX: D64.9 Anemia, unspecified (principal); Z88.8 Allergy status to other drugs, medicaments and biological substances; Z88.1 Allergy status to other antibiotic agents
CPT/HCPCS: 96365; J1756

== ENCOUNTER 2024-03-16 12:05 | Outpatient (CLI) | payer OTHER ==
[~2024-03-16] VITALS: Ht 162.6 cm; Wt 135.0 kg
[2024-03-16 12:05] VITALS: BP 160/67; O2SAT 96
[2024-03-16] MEDS: IRON SUCROSE 200 MG in NS 100 ML OVER 1 HR IV ONE (12:16)
[2024-03-16 13:30] VITALS: BP 135/87; O2SAT 94
== END 2024-03-16 13:24 ==
LOC: M INFU 12:05
PROVIDERS: ATTEND Nurse Practitioner Family
DX: D64.9 Anemia, unspecified (principal); Z88.8 Allergy status to other drugs, medicaments and biological substances
CPT/HCPCS: 96365; J1756

== ENCOUNTER 2024-03-25 12:28 | Emergency (ER) | payer OTHER ==
[~2024-03-25] VITALS: Ht 162.6 cm; Wt 133.2 kg
[2024-03-25 13:50] LABS: BASO % 0.4 % (0.0-1.0); EOS % 0.8 % (0.0-3.0); HEMATOCRIT 42.2 % (36.0-47.0); HEMOGLOBIN 13.4 g/dl (12.0-15.5); LYMPH # 1.6 10^3/uL (1.5-5.0); LYMPH % 31.6 % (24.0-44.0); MEAN CORPUSCULAR HEMOGLOBIN 26.9 pg (27.0-33.0); MEAN CORPUSCULAR HGB CONC 31.8 g/dl (32.0-36.5); MEAN CORPUSCULAR VOLUME 84.6 fl (80.0-96.0); MONO # 0.3 10^3/uL (0.0-0.8); MONO % 5.8 % (2.0-8.0); NEUTROPHILS # 3.2 10^3/uL (1.5-8.5); NEUTROPHILS % 61.2 % (36.0-66.0); PLATELET COUNT, AUTOMATED 265 10^3/uL (150-450); RED BLOOD COUNT 4.99 10^6/uL (4.00-5.40); WHITE BLOOD COUNT 5.2 10^3/uL (4.0-10.0)
[2024-03-25 14:06] LABS: BLOOD UREA NITROGEN 11 MG/DL (9-23); CALCIUM LEVEL 9.2 MG/DL (8.5-10.1); CARBON DIOXIDE LEVEL 26 MMOL/L (20-31); CHLORIDE LEVEL 110 MMOL/L (98-107); CREATININE FOR GFR 0.72 MG/DL (0.55-1.30); GLOMERULAR FILTRATION RATE > 60.0 (>58); GLUCOSE, FASTING 95 MG/DL (60-100); POTASSIUM SERUM 3.9 MMOL/L (3.5-5.1); SODIUM LEVEL 145 MMOL/L (136-145)
[2024-03-25 14:09] LABS: THYROID STIMULATING HORMONE 0.502 uIU/ML (0.55-4.78)
[2024-03-25] MEDS: ACETAMINOPHEN *IV* 1,000 MG in IV 1 EA IV ONE (14:41)
[2024-03-25] MEDS: diazePAM 10MG/2ML SYRINGE IV ONE (14:41)
[2024-03-25 15:43] LABS: AMPHETAMINES LEVEL URINE NEGATIVE (NEGATIVE); BARBITURATES URINE NEGATIVE (NEGATIVE); COCAINE METABOLITE URINE NEGATIVE (NEGATIVE); METHADONE URINE NEGATIVE (NEGATIVE); OPIATES URINE NEGATIVE (NEGATIVE)
[2024-03-25 15:44] LABS: BENZODIAZEPINES URINE NEGATIVE (NEGATIVE); CANNABINOIDS URINE NEGATIVE (NEGATIVE); PHENCYCLIDINE URINE NEGATIVE (NEGATIVE)
[2024-03-25] MEDS: GASTROGRAFIN SOLUTION 30ML PO SCH (17:54)
[2024-03-25] MEDS: fentaNYL 100 MCG/2 ML INJECTION IV PRN (17:55)
[2024-03-25] MEDS: METOCLOPRAMIDE INJ 10MG/2ML VIAL IV ONE (17:55)
[2024-03-25] MEDS ORDERED: ISOVUE-370 76% 100ML VIAL As Ordered ONE (19:23)
[2024-03-25 21:04] VITALS: BP 125/71; TEMP 97.4; O2SAT 98
== END 2024-03-25 21:31 | disposition home or self-care (01) ==
LOC: EDSEX 12:28 → EDBD 12:28 → M ED 12:28
DX: N20.0 Calculus of kidney (principal); I10 Essential (primary) hypertension; F41.9 Anxiety disorder, unspecified; F32.A Depression, unspecified; D64.9 Anemia, unspecified; E66.9 Obesity, unspecified; Z98.84 Bariatric surgery status; Z88.1 Allergy status to other antibiotic agents; Z88.8 Allergy status to other drugs, medicaments and biological substances; Z79.52 Long term (current) use of systemic steroids; Z79.810 Long term (current) use of selective estrogen receptor modulators (SERMs); Z79.899 Other long term (current) drug therapy
CPT/HCPCS: 74176; 74177; 80048; 80307; 81001; 84443; 85025; 93005; 93041; 94760; 96374; 96375; 99285; J0131; J2765; J3010; J3360; Q9963; Q9967

== ENCOUNTER → 2024-03-25 | Outpatient (CLI) | payer OTHER ==
[~2024-03-25] MED LIST changes: +IRON SUCROSE 200 MG in NS 100 ML OVER 1 HR IV ONE
== END ==
LOC: M INFU 11:14
PROVIDERS: ATTEND Nurse Practitioner Family
DX: D64.9 Anemia, unspecified (principal); Z88.8 Allergy status to other drugs, medicaments and biological substances

== ENCOUNTER → 2024-03-25 | Outpatient (CLI) | payer OTHER ==
[~2024-03-25] MED LIST changes: -ALBUTEROL SULFATE 2.5MG/0.5ML INH NEB SOLN INH PRN; -EPINEPHrine INJ 1 MG/ML 1ML AMP IM PRN; -IRON SUCROSE 200 MG in NS 100 ML OVER 1 HR IV ONE; -NS 1,000 ML IV SCH; -diphenhydrAMINE 50MG/ML VIAL IV PRN; -methylPREDNISolone 125MG 2ML VIAL IV PRN
[2024-03-29 17:48] LABS: METANEPHRINE PLASMA < 25 pg/mL (<=57); NORMETANEPHRINE PLASMA 68 pg/mL (<=148); TOTAL FREE 68 pg/mL (<=205)
[2024-04-02 15:37] LABS: CORTISOL SALIVARY 0.14 mcg/dL
== END ==
LOC: M LAB 11:17
PROVIDERS: ATTEND Physician Assistant
DX: R63.5 Abnormal weight gain (principal)

== ENCOUNTER → 2024-03-30 | Outpatient (REF) | payer OTHER | LOC: M LAB REF 14:06 | PROVIDERS: ATTEND Physician Assistant | DX: Z98.84 Bariatric surgery status (principal) ==

== ENCOUNTER → 2024-04-07 | Outpatient (CLI) | payer OTHER | LOC: M RAD 12:45 | PROVIDERS: ATTEND Nurse Practitioner Family | DX: K59.00 Constipation, unspecified (principal) ==

== ENCOUNTER → 2024-06-22 | Outpatient (CLI) | payer OTHER | LOC: M PLAIMG 12:34 | PROVIDERS: ATTEND Physician Assistant | DX: R91.8 Other nonspecific abnormal finding of lung field (principal) ==

== ENCOUNTER → 2024-06-22 | Outpatient (CLI) | payer OTHER | LOC: M WHC 12:34 | PROVIDERS: ATTEND Internal Medicine Endocrinology, Diabetes & Metabolism | DX: Z13.820 Encounter for screening for osteoporosis (principal); Z98.84 Bariatric surgery status; E04.2 Nontoxic multinodular goiter; R63.5 Abnormal weight gain ==

== ENCOUNTER → 2024-08-18 | Outpatient (CLI) | payer OTHER | LOC: M RAD 12:56 | PROVIDERS: ATTEND Physician Assistant | DX: M79.605 Pain in left leg (principal) ==

== ENCOUNTER 2024-08-25 09:04 | Emergency (ER) | payer OTHER ==
[~2024-08-25] VITALS: Ht 162.6 cm; Wt 122.1 kg
[2024-08-25] MEDS ORDERED: TRAZ-252 PO (09:12)
[2024-08-25] MEDS ORDERED: DICY20TA20 PO (09:12)
[2024-08-25] MEDS ORDERED: METR-265 PO (09:12)
[2024-08-25] MEDS ORDERED: AMPH1CAP16 PO (09:12)
[2024-08-25] MEDS ORDERED: BACTDSTA PO (09:12)
[2024-08-25] MEDS: MORPHINE 2 MG/ML 1ML VIAL IV PRN (09:30)
[2024-08-25 09:42] LABS: BASO % 0.3 % (0.0-1.0); EOS # 0.1 10^3/uL (0.0-0.5); HEMATOCRIT 44.2 % (36.0-47.0); HEMOGLOBIN 15.3 g/dl (12.0-15.5); LYMPH # 2.2 10^3/uL (1.5-5.0); LYMPH % 31.9 % (24.0-44.0); MEAN CORPUSCULAR HEMOGLOBIN 30.6 pg (27.0-33.0); MEAN CORPUSCULAR HGB CONC 34.6 g/dl (32.0-36.5); MEAN CORPUSCULAR VOLUME 88.4 fl (80.0-96.0); MONO # 0.6 10^3/uL (0.0-0.8); MONO % 8.4 % (2.0-8.0); NEUTROPHILS % 58.1 % (36.0-66.0); PLATELET COUNT, AUTOMATED 304 10^3/uL (150-450); WHITE BLOOD COUNT 6.9 10^3/uL (4.0-10.0)
[2024-08-25 10:03] LABS: LIPASE 48 U/L (12-53)
[2024-08-25 10:06] LABS: ALBUMIN 3.8 G/DL (3.2-5.2); ALKALINE PHOSPHATASE 132 U/L (35-104); ALT/SGPT 32 U/L (7.0-40); AST/SGOT 26 U/L (<34); BILIRUBIN,DIRECT 0.1 MG/DL (<0.4); BILIRUBIN,TOTAL 0.4 MG/DL (0.3-1.2); BLOOD UREA NITROGEN 10 MG/DL (9-23); CARBON DIOXIDE LEVEL 23 MMOL/L (20-31); CHLORIDE LEVEL 107 MMOL/L (98-107); CREATININE FOR GFR 0.93 MG/DL (0.55-1.30); GLOMERULAR FILTRATION RATE > 60.0 (>51); GLUCOSE, FASTING 107 MG/DL (60-100); POTASSIUM SERUM 4.4 MMOL/L (3.5-5.1); SODIUM LEVEL 141 MMOL/L (136-145); TOTAL PROTEIN 7.3 G/DL (5.7-8.2)
[2024-08-25 10:39] LABS: CK-MB VALUE MASS < 1.0 NG/ML (<3.6)
[2024-08-25 10:40] LABS: CPK CREATINE PHOSPHOKINASE 82 U/L (34-145); MB/CK RELATIVE INDEX 1.21 (< OR =4)
[2024-08-25] MEDS ORDERED: ISOVUE-370 76% 100ML VIAL As Ordered ONE (11:26)
[2024-08-25] MEDS: MORPHINE 4 MG/ML 1ML VIAL IV PRN (12:15)
[2024-08-25] MEDS ORDERED: LEXA1TAB2 PO (13:28)
[2024-08-25] MEDS ORDERED: BUPR150T12 PO (13:28)
[2024-08-25] MEDS ORDERED: NYST-38 SS (13:28)
[2024-08-25] MEDS ORDERED: HOME MED LIST COMPLETE! XX SCH (13:30)
[2024-08-25] MEDS: SUCRALFATE SUSP 1GM/10ML UD PO ONE (14:28)
[2024-08-25] MEDS: PANTOPRAZOLE 40MG VIAL IV ONE (14:28)
[2024-08-25] MEDS ORDERED: PROT1TAB2 PO (15:12)
[2024-08-25] MEDS ORDERED: SUCR1SS PO (15:12)
[2024-08-25 15:35] VITALS: BP 127/86; TEMP 98.1; O2SAT 98
== END 2024-08-25 15:47 | disposition home or self-care (01) ==
LOC: M ED 09:04 → EDBD 09:04 → M ED 15:47
DX: R10.9 Unspecified abdominal pain (principal); I10 Essential (primary) hypertension; F32.A Depression, unspecified; F41.9 Anxiety disorder, unspecified; Z98.84 Bariatric surgery status; Z88.8 Allergy status to other drugs, medicaments and biological substances; Z79.52 Long term (current) use of systemic steroids; Z79.83 Long term (current) use of bisphosphonates; Z79.899 Other long term (current) drug therapy
CPT/HCPCS: 74177; 80048; 80076; 82550; 82553; 83690; 84484; 85025; 93005; 96374; 96375; 96376; 99285; J2470; Q9967

== ENCOUNTER 2024-10-10 16:31 | Emergency (ER) | payer OTHER ==
[~2024-10-10 16:31] MED LIST changes: +AMPH1CAP16 PO; +BACTDSTA PO; +BUPR150T12 PO; +DICY20TA20 PO; +LEXA1TAB2 PO; +METR-265 PO; +NYST-38 SS; +TRAZ-252 PO
[2024-10-10 17:10] LABS: BASO % 0.4 % (0.0-1.0); EOS # 0.1 10^3/uL (0.0-0.5); EOS % 0.9 % (0.0-3.0); HEMATOCRIT 38.6 % (36.0-47.0); HEMOGLOBIN 13.2 g/dl (12.0-15.5); LYMPH # 2.3 10^3/uL (1.5-5.0); LYMPH % 28.8 % (24.0-44.0); MEAN CORPUSCULAR HEMOGLOBIN 30.4 pg (27.0-33.0); MEAN CORPUSCULAR HGB CONC 34.2 g/dl (32.0-36.5); MEAN CORPUSCULAR VOLUME 88.9 fl (80.0-96.0); MONO # 0.6 10^3/uL (0.0-0.8); NEUTROPHILS # 4.9 10^3/uL (1.5-8.5); NEUTROPHILS % 61.4 % (36.0-66.0); PLATELET COUNT, AUTOMATED 280 10^3/uL (150-450); RED BLOOD COUNT 4.34 10^6/uL (4.00-5.40); WHITE BLOOD COUNT 7.9 10^3/uL (4.0-10.0)
[2024-10-10] MEDS ORDERED: ISOVUE-370 76% 100ML VIAL As Ordered ONE (17:23)
[2024-10-10] MEDS: ONDANSETRON 4MG 2ML VIAL IV ONE (18:23)
[2024-10-10] MEDS: MORPHINE 4 MG/ML 1ML VIAL IV ONE ×2 (18:25→20:54)
[2024-10-10] MEDS: KETOROLAC 30 MG/ML 1ML VIAL IV ONE (19:21)
[2024-10-10] MEDS: diazePAM 5MG TABLET PO ONE (19:21)
[2024-10-10] MEDS: ACETAMINOPHEN 500 MG TAB PO ONE (19:21)
[2024-10-10] MEDS: LORazepam 2 MG/ML 1ML VIAL IV ONE (22:45)
[2024-10-10 23:16] VITALS: BP 113/62; TEMP 97.8; O2SAT 99
[2024-10-10] MEDS ORDERED: MEDR4TAB PO (23:36)
[2024-10-10] MEDS ORDERED: TIZA4CAP PO (23:36)
[2024-10-10] MEDS ORDERED: HYDR-3713 PO (23:46)
[2024-10-10] MEDS: NORCO 5/325MG TABLET (HOME DOSE PACK) PO ONE (23:50)
== END 2024-10-11 00:07 | disposition home or self-care (01) ==
LOC: M ED 16:31 → EDBD 16:31 → M ED 10-11 00:07
DX: M54.50 Low back pain, unspecified (principal); M25.511 Pain in right shoulder; M54.2 Cervicalgia; G89.29 Other chronic pain; V49.50XA Passenger injured in collision with unspecified motor vehicles in traffic accident, initial encounter; M48.02 Spinal stenosis, cervical region; F90.9 Attention-deficit hyperactivity disorder, unspecified type; Z98.84 Bariatric surgery status; Z88.8 Allergy status to other drugs, medicaments and biological substances; Z79.52 Long term (current) use of systemic steroids; Z79.83 Long term (current) use of bisphosphonates; Z79.899 Other long term (current) drug therapy; Z79.1 Long term (current) use of non-steroidal anti-inflammatories (NSAID); Y99.9 Unspecified external cause status; Y92.410 Unspecified street and highway as the place of occurrence of the external cause; Y93.89 Activity, other specified
CPT/HCPCS: 70450; 71275; 72125; 72128; 72131; 73000; 73030; 73060; 73200; 74177; 80047; 85025; 93005; 96374; 96375; 99284; J1885; J2060; J2405; Q9967

== ENCOUNTER → 2025-03-24 | Outpatient (REF) | payer OTHER ==
[~2025-03-24] MED LIST changes: -BUPR-597 PO; +BUPR-766 PO; +HYDR-3713 PO; +MEDR4TAB PO; +TIZA4CAP PO; +TOPI-257 PO; -TOPI100T9 PO
== END ==
LOC: M LAB REF 16:41
PROVIDERS: ATTEND Nurse Practitioner Family
DX: J06.9 Acute upper respiratory infection, unspecified (principal)

== ENCOUNTER → 2025-04-28 | Outpatient (CLI) | payer OTHER | LOC: M WHC 09:42 | PROVIDERS: ATTEND Nurse Practitioner Family | DX: M79.622 Pain in left upper arm (principal); R92.313 Mammographic fatty tissue density, bilateral breasts ==

== ENCOUNTER → 2025-05-25 | Outpatient (REF) | payer OTHER | LOC: M LAB REF 17:05 | PROVIDERS: ATTEND Nurse Practitioner Family | DX: S31.109A Unspecified open wound of abdominal wall, unspecified quadrant without penetration into peritoneal cavity, initial encounter (principal); X58.XXXA Exposure to other specified factors, initial encounter; Y92.9 Unspecified place or not applicable; Y93.9 Activity, unspecified; Y99.9 Unspecified external cause status ==

== ENCOUNTER → 2025-05-29 | Outpatient (CLI) | payer OTHER | LOC: M RAD 14:41 | PROVIDERS: ATTEND Physician Assistant | DX: M54.12 Radiculopathy, cervical region (principal); M50.30 Other cervical disc degeneration, unspecified cervical region; M79.18 Myalgia, other site; M40.50 Lordosis, unspecified, site unspecified ==

== ENCOUNTER 2025-07-03 13:06 | Observation (INO) | payer OTHER ==
[~2025-07-03] VITALS: Ht 162.6 cm; Wt 130.2 kg
[~2025-07-03 13:06] MED LIST changes: +MEDR4PAK PO
[2025-07-03 14:06] LABS: BASO # 0.0 10^3/uL (0.0-0.2); BASO % 0.2 % (0.0-1.0); EOS # 0.0 10^3/uL (0.0-0.5); EOS % 0.5 % (0.0-3.0); LYMPH # 2.2 10^3/uL (1.5-5.0); LYMPH % 25.5 % (24.0-44.0); MONO # 0.7 10^3/uL (0.0-0.8); MONO % 8.1 % (2.0-8.0); NEUTROPHILS # 5.7 10^3/uL (1.5-8.5); NEUTROPHILS % 65.5 % (36.0-66.0); PLATELET COUNT, AUTOMATED 306 10^3/uL (150-450)
[2025-07-03 14:17] LABS: INR 0.95
[2025-07-03] MEDS: HYDROMORPHONE HCL 0.5 MG/0.5 ML SYRINGE IV PRN ×2 (14:17→19:28)
[2025-07-03 14:33] LABS: ALT/SGPT 32 U/L (7.0-40); AST/SGOT 26 U/L (<34); CALCIUM LEVEL 9.0 MG/DL (8.5-10.1); CARBON DIOXIDE LEVEL 25 MMOL/L (20-31); CHLORIDE LEVEL 107 MMOL/L (98-107); CK-MB VALUE MASS < 1.0 NG/ML (<3.6); CREATININE FOR GFR 0.69 MG/DL (0.55-1.30); GLOMERULAR FILTRATION RATE > 90.0 (>51); POTASSIUM SERUM 4.5 MMOL/L (3.5-5.1); SODIUM LEVEL 141 MMOL/L (136-145)
[2025-07-03 14:35] LABS: CPK CREATINE PHOSPHOKINASE 66 U/L (34-145)
[2025-07-03 15:37] LABS: CK-MB VALUE MASS < 1.0 NG/ML (<3.6)
[2025-07-03 15:39] LABS: CPK CREATINE PHOSPHOKINASE 68 U/L (34-145)
[2025-07-03] MEDS: METHOCARBAMOL 1,000 MG/10 ML VIAL IV ONE (16:37)
[2025-07-03] MEDS: KETOROLAC 30 MG/ML 1 ML VIAL IV ONE (16:38)
[2025-07-03 20:21] LABS: KETONE, URINE AUTO RFX NEGATIVE (NEGATIVE); MUCUS, URINE RFX SMALL (NEGATIVE); NITRITE, URINE AUTO RFX NEGATIVE (NEGATIVE); RBC, URINE AUTO RFX 4 /HPF (0-3); SQUAM EPITHELIAL CELL UR AURFX 4 /HPF (0-6); WBC, URINE AUTO RFX 4 /HPF (0-3)
[2025-07-03 20:22] LABS: LEUKOCYTE ESTERASE UR AUTO RFX TRACE (NEGATIVE)
[2025-07-03] MEDS ORDERED: MOM 30 ML SUSPENSION UDC PO PRN (21:10)
[2025-07-03] MEDS ORDERED: ACETAMINOPHEN 325 MG TAB PO PRN (21:10)
[2025-07-03] MEDS ORDERED: MAALOX 30 ML SUSP *UDC PO PRN (21:10)
[2025-07-03] MEDS ORDERED: ONDANSETRON 4MG/2ML VIAL IV PRN (21:20)
[2025-07-03] MEDS: CYCLOBENZAPRINE 10 MG TABLET PO SCH (21:36)
[2025-07-03 22:26] VITALS: BP 106/53; TEMP 98; O2SAT 96
[2025-07-04] MEDS ORDERED: PANT40TA29 PO (01:14)
[2025-07-04] MEDS ORDERED: SUCR1TA PO (01:42)
[2025-07-04] MEDS ORDERED: ADDE10TA PO (01:42)
[2025-07-04] MEDS ORDERED: CYCL-707 PO (01:42)
[2025-07-04] MEDS ORDERED: LIDO1ADH93 TOP (01:53)
[2025-07-04] MEDS ORDERED: HOME MED LIST COMPLETE! XX SCH (01:55)
[2025-07-04] MEDS ORDERED: PILL CUTTER 1 EACH XX PRN (02:45)
[2025-07-04] MEDS: ESCITALOPRAM OXALATE 10 MG TABLET PO SCH (02:49)
[2025-07-04] MEDS: traZODone 50 MG TAB PO SCH (02:49)
[2025-07-04 04:00] VITALS: BP 113/67; TEMP 97.8; O2SAT 96
[2025-07-04] MEDS: buPROPion **XL** 150 MG TABLET PO SCH (08:28)
[2025-07-04] MEDS: ENOXAPARIN 40 MG/0.4 ML SYRINGE (J1650 PER 10MG) SC SCH (08:29)
[2025-07-04] MEDS: LIDOCAINE 5% PATCH TOP SCH (08:29)
[2025-07-04] MEDS: PANTOPRAZOLE 40MG TAB PO SCH (08:29)
[2025-07-04] MEDS: DOCUSATE SODIUM 100 MG CAPSULE PO SCH (08:29)
[2025-07-04] MEDS: LORazepam 1 MG TAB PO PRN (08:40)
[2025-07-04 12:00] VITALS: BP 125/76; TEMP 97.5; O2SAT 97
[2025-07-04 19:43] VITALS: BP 114/69; TEMP 97.2; O2SAT 94
[2025-07-04 20:00] VITALS: BP 114/69; TEMP 97.2; O2SAT 94
[2025-07-04] MEDS: CYCLOBENZAPRINE 10 MG TABLET PO PRN (20:55)
[2025-07-05] MEDS: MORPHINE SULFATE TAB IMM. REL. 30 MG PO PRN (01:32)
[2025-07-05 03:24] VITALS: BP 128/75; TEMP 97.1; O2SAT 94
[2025-07-05 04:00] VITALS: BP 128/75; TEMP 97.1; O2SAT 94
[2025-07-05 07:37] LABS: BASO # 0.0 10^3/uL (0.0-0.2); BASO % 0.3 % (0.0-1.0); EOS # 0.2 10^3/uL (0.0-0.5); EOS % 2.3 % (0.0-3.0); LYMPH # 2.4 10^3/uL (1.5-5.0); LYMPH % 36.3 % (24.0-44.0); MONO # 0.6 10^3/uL (0.0-0.8); MONO % 9.1 % (2.0-8.0); NEUTROPHILS # 3.4 10^3/uL (1.5-8.5); NEUTROPHILS % 51.7 % (36.0-66.0); PLATELET COUNT, AUTOMATED 284 10^3/uL (150-450)
[2025-07-05] MEDS: FLUZONE VACCINE TRI PF(25-26) 0.5ML SYRINGE IM.IMMUN ONE (07:44)
[2025-07-05 07:57] LABS: CALCIUM LEVEL 8.2 MG/DL (8.5-10.1); CARBON DIOXIDE LEVEL 28 MMOL/L (20-31); CHLORIDE LEVEL 105 MMOL/L (98-107); CREATININE FOR GFR 0.76 MG/DL (0.55-1.30); GLOMERULAR FILTRATION RATE > 90.0 (>51); POTASSIUM SERUM 4.1 MMOL/L (3.5-5.1); SODIUM LEVEL 141 MMOL/L (136-145)
[2025-07-05 11:47] VITALS: BP 135/82; TEMP 97; O2SAT 94
[2025-07-05 20:00] VITALS: BP 149/81; TEMP 97.2; O2SAT 94
[2025-07-05] MEDS: NYSTATIN 100,000 UNITS/GM TOPICAL PWD 15 GM TOP SCH (21:04)
[2025-07-06 04:07] VITALS: BP 135/81; TEMP 97.1; O2SAT 94
[2025-07-06] MEDS: IPRATROPIUM 0.5 MG/ALBUTEROL 2.5 MG INH SOL UD 3 ML NEB PRN (04:59)
[2025-07-06] MEDS ORDERED: PERC5TAB12 PO (08:07)
[2025-07-07 08:00] VITALS: BP 96/51; TEMP 97.1; O2SAT 99
== END 2025-07-06 10:24 | disposition home or self-care (01) ==
LOC: M ED 13:06 → EDBD 13:06 → M ED INP 13:07 → M MS4PR 22:25
PROVIDERS: ADMIT Student in an Organized Health Care Education/Training Program; ATTEND Student in an Organized Health Care Education/Training Program
DX: M54.59 Other low back pain (principal); I10 Essential (primary) hypertension; F90.9 Attention-deficit hyperactivity disorder, unspecified type; F41.9 Anxiety disorder, unspecified; F32.A Depression, unspecified; Z79.899 Other long term (current) drug therapy
CPT/HCPCS: 36415; 71045; 72125; 72128; 72131; 72148; 80048; 80076; 81001; 82550; 82553; 83690; 83880; 84443; 84484; 85025; 85610; 85730; 87088; 87186; 93005; 93041; 94640; 94760; 96372; 96374; 96375; 96376; 97161; 97165; 99285; J1171; J1650; J1885; J2800

== ENCOUNTER → 2025-07-22 | Outpatient (CLI) | payer OTHER ==
[~2025-07-22] MED LIST changes: +ADDE10TA PO; +LIDO1ADH93 TOP; +OMEGA-3 1000 MG CAPSULE ONE; +PROHANCE 279.3MG/ML 15ML VIAL ONE; +PROHANCE 279.3MG/ML 5ML VIAL ONE
== END ==
LOC: M PLAIMG 09:21
PROVIDERS: ATTEND Physician Assistant Surgical
DX: M79.89 Other specified soft tissue disorders (principal)
CPT/HCPCS: 73720; A9579

== ENCOUNTER → 2025-08-03 | Outpatient (REF) | payer OTHER ==
[~2025-08-03] MED LIST changes: -BACTDSTA PO; -OMEGA-3 1000 MG CAPSULE ONE; -PROHANCE 279.3MG/ML 15ML VIAL ONE; -PROHANCE 279.3MG/ML 5ML VIAL ONE; +SULF-8 PO
[2025-08-03 18:26] LABS: APPEARANCE, URINE HAZY (CLEAR); BACTERIA, URINE AUTO NEGATIVE (NEGATIVE); BILIRUBIN, URINE AUTO NEGATIVE (NEGATIVE); BLOOD, URINE BLOOD NEGATIVE (NEGATIVE); CALCIUM OXALATE CRYSTALS SMALL; GLUCOSE, URINE (UA) AUTO NEGATIVE (NEGATIVE); KETONE, URINE AUTO NEGATIVE (NEGATIVE); LEUKOCYTE ESTERASE, URINE AUTO TRACE (NEGATIVE); MUCUS, URINE SMALL (NEGATIVE); NITRITE, URINE AUTO NEGATIVE (NEGATIVE); PROTEIN, URINE AUTO NEGATIVE (NEGATIVE); RBC, URINE AUTO 0 /HPF (0-3); SPECIFIC GRAVITY URINE AUTO 1.024 (1.002-1.035); SQUAMOUS EPITHELIAL CELL UR AU 2 /HPF (0-6); UROBILINOGEN, URINE AUTO 0.2 mg/dL (0.0-2.0); WBC, URINE AUTO 1 /HPF (0-3)
== END ==
LOC: M LAB REF 17:07
PROVIDERS: ATTEND Physician Assistant Medical
DX: N39.0 Urinary tract infection, site not specified (principal)

== ENCOUNTER → 2025-08-03 | Outpatient (CLI) | payer OTHER | LOC: M PLAIMG 11:02 | PROVIDERS: ATTEND Nurse Practitioner Family | DX: R91.1 Solitary pulmonary nodule (principal); R91.8 Other nonspecific abnormal finding of lung field; R07.9 Chest pain, unspecified ==

== ENCOUNTER → 2025-08-19 | Outpatient (CLI) | payer OTHER ==
[2025-08-19 13:03] LABS: BASO # 0.0 10^3/uL (0.0-0.2); BASO % 0.3 % (0.0-1.0); EOS # 0.1 10^3/uL (0.0-0.5); EOS % 2.1 % (0.0-3.0); LYMPH # 1.9 10^3/uL (1.5-5.0); LYMPH % 33.3 % (24.0-44.0); MONO # 0.4 10^3/uL (0.0-0.8); MONO % 6.9 % (2.0-8.0); NEUTROPHILS # 3.3 10^3/uL (1.5-8.5); NEUTROPHILS % 57.2 % (36.0-66.0); PLATELET COUNT, AUTOMATED 316 10^3/uL (150-450)
[2025-08-19 13:11] LABS: ALT/SGPT 50 U/L (7.0-40); AST/SGOT 34 U/L (<34); CALCIUM LEVEL 8.9 MG/DL (8.5-10.1); CARBON DIOXIDE LEVEL 28 MMOL/L (20-31); CHLORIDE LEVEL 105 MMOL/L (98-107); CREATININE FOR GFR 0.68 MG/DL (0.55-1.30); GLOMERULAR FILTRATION RATE > 90.0 (>51); IRON (FE) 44 UG/DL (50-170); MAGNESIUM LEVEL 1.9 MG/DL (1.8-2.4); PERCENT SATURATION 10.7 % (13.2-45.0); POTASSIUM SERUM 4.6 MMOL/L (3.5-5.1); PTH INTACT 70.6 PG/ML (18.5-88.0); SODIUM LEVEL 141 MMOL/L (136-145)
[2025-08-19 13:13] LABS: VITAMIN B12 LEVEL 461 PG/ML (211-911)
[2025-08-19 13:15] LABS: TOTAL 25(OH) VITAMIN D 35.8 NG/ML (20.0-100.0)
[2025-08-19 13:26] LABS: ESTIMATED AVERAGE GLUCOSE 100.0 MG/DL (60-110)
== END ==
LOC: M RAD 11:04
PROVIDERS: ATTEND Nurse Practitioner Family
DX: R22.31 Localized swelling, mass and lump, right upper limb (principal)

== ENCOUNTER 2025-09-05 17:24 | Emergency (ER) | payer OTHER ==
[~2025-09-05] VITALS: Ht 162.6 cm; Wt 132.5 kg
[2025-09-05 18:34] LABS: BASO # 0.0 10^3/uL (0.0-0.2); BASO % 0.2 % (0.0-1.0); EOS # 0.1 10^3/uL (0.0-0.5); EOS % 0.9 % (0.0-3.0); LYMPH # 1.8 10^3/uL (1.5-5.0); LYMPH % 28.0 % (24.0-44.0); MONO # 0.5 10^3/uL (0.0-0.8); MONO % 8.3 % (2.0-8.0); NEUTROPHILS # 4.0 10^3/uL (1.5-8.5); NEUTROPHILS % 62.3 % (36.0-66.0); PLATELET COUNT, AUTOMATED 256 10^3/uL (150-450)
[2025-09-05 19:01] LABS: ALT/SGPT 33 U/L (7.0-40); AST/SGOT 31 U/L (<34); CALCIUM LEVEL 8.7 MG/DL (8.5-10.1); CARBON DIOXIDE LEVEL 28 MMOL/L (20-31); CHLORIDE LEVEL 106 MMOL/L (98-107); CREATININE FOR GFR 0.76 MG/DL (0.55-1.30); GLOMERULAR FILTRATION RATE > 90.0 (>51); POTASSIUM SERUM 4.4 MMOL/L (3.5-5.1); SODIUM LEVEL 141 MMOL/L (136-145)
[2025-09-05 19:43] LABS: KETONE, URINE AUTO RFX NEGATIVE (NEGATIVE); LEUKOCYTE ESTERASE UR AUTO RFX NEGATIVE (NEGATIVE); NITRITE, URINE AUTO RFX NEGATIVE (NEGATIVE); RBC, URINE AUTO RFX 0 /HPF (0-3); SQUAM EPITHELIAL CELL UR AURFX 0 /HPF (0-6); WBC, URINE AUTO RFX 0 /HPF (0-3)
[2025-09-05] MEDS ORDERED: ISOVUE-370 76% 100 ML VIAL As Ordered ONE (19:45)
[2025-09-05] MEDS: MORPHINE 4 MG/ML 1 ML VIAL IV ONE (20:02)
[2025-09-05] MEDS: NS (Normal Saline) 0.9% 1,000 ML IV ONE (20:02)
[2025-09-05] MEDS: ONDANSETRON 4MG/2ML VIAL IV ONE (20:02)
[2025-09-05] MEDS ORDERED: ONDA-282 PO (21:32)
[2025-09-05] MEDS ORDERED: LIDO1ADH93 TD (21:32)
[2025-09-05] MEDS: LIDOCAINE 5% PATCH TD ONE (21:38)
[2025-09-05] MEDS: PERCOCET 5MG/325MG TAB PO ONE (21:38)
[2025-09-05 22:05] VITALS: BP 131/75; TEMP 97.9; O2SAT 98
[2025-09-05] MEDS: OXYCODONE/APAP 5MG/325MG(HOME DOSE PACK) PO ONE (22:17)
== END 2025-09-05 22:15 | disposition home or self-care (01) ==
LOC: M ED 17:24
DX: R10.9 Unspecified abdominal pain (principal); R11.2 Nausea with vomiting, unspecified; E03.9 Hypothyroidism, unspecified; F90.9 Attention-deficit hyperactivity disorder, unspecified type; F31.9 Bipolar disorder, unspecified; Z88.8 Allergy status to other drugs, medicaments and biological substances; Z79.51 Long term (current) use of inhaled steroids; Z79.899 Other long term (current) drug therapy
CPT/HCPCS: 74177; 80048; 80076; 81001; 83690; 84484; 85025; 93005; 96361; 96374; 96375; 99284; J2405; J2765; Q9967